=== PATIENT | male | born 1955 | race Caucasian/White ===

== ENCOUNTER → 2018-07-01 10:11 | Outpatient (CLI) | payer BC, SELFPAY | PROVIDERS: Visit Provider Internal Medicine Hematology & Oncology | DX: C25.9 Malignant neoplasm of pancreas, unspecified (principal) | CPT/HCPCS: 78306 ==

== ENCOUNTER → 2018-07-08 12:52 | Outpatient (CLI) | payer BC, SELFPAY | PROVIDERS: Visit Provider Internal Medicine Hematology & Oncology | DX: C25.9 Malignant neoplasm of pancreas, unspecified (principal) | CPT/HCPCS: 70553; 71260; 74177; A9585; Q9967; A4216 ==

== ENCOUNTER 2018-09-03 15:10 | Inpatient (IN) | payer BC, OTHER, SELFPAY ==
[2018-09-03 15:12] VITALS: BP 150/86; PULSE 63; RESP 18; TEMP 36.6; O2SAT 99; BMI 28.8
--- NOTE | 2018-09-03 15:27 | EKG12_ITS ---
Test Reason : Blood Pressure : / mmHG Vent. Rate : 063 BPM Atrial Rate : 063 BPM P-R Int : 148 ms QRS Dur : 084 ms QT Int : 448 ms P-R-T Axes : -08 035 057 degrees QTc Int : 458 ms Normal sinus rhythm Normal ECG Confirmed by CAMMIE GONZALES, GEMA ([id number]), marketing editor ASHLEY FREEMAN ([id number]) on 09/06/2018 12:24:03 PM Referred By: Derrell Ornelas Confirmed By:GEMA BONDS MD
--- NOTE | 2018-09-03 15:37 | CT_ITS ---
STUDY: CT ABDOMEN AND PELVIS WITH CONTRAST REASON FOR EXAM: Male, 63 years old. Hiccups for one week. Pancreatic cancer with stent. Chemotherapy. RADIATION DOSAGE (If Supplied By Facility): CTDIvol = ( 14.55 ) mGy, DLP = ( 920.15 ) mGycm TECHNIQUE: Transaxial images were obtained from the dome of the diaphragm to the symphysis pubis with oral contrast. 100 ml of Isovue 300 contrast was administered. Sagittal and coronal images were reconstructed. # of Images: 410 Individualized dose optimization techniques were used for this CT. COMPARISON: None. FINDINGS: The visualized lung bases are unremarkable. The visualized portions of the heart are within normal limits. Relatively stable appearance of infiltrating mass in the head of the pancreas. This is difficult to measure but on coronal views is probably about 4.8 cm top to bottom, versus about 4.9 cm previously, and axial images approximately 5 cm side to side versus 4.9 cm previously. These measurements are not significantly different. Again seen is encasement of epigastric vascular structures. Again seen is a dilated pancreatic duct. Common bile duct stent is still in satisfactory position. Intrabiliary air is seen in the liver from the stent. Otherwise normal liver, no gross metastatic disease. Nondistended gallbladder, with gallstones again seen. Normal spleen. Normal bilateral adrenal glands. Normal right kidney. Normal left kidney. Normal visualized stomach. Normal small intestine. There is diverticulosis, with thickening of the colon wall, and pericolonic inflammation changes consistent with acute diverticulitis in the descending colon. There is localized perforation with small foci of extraluminal air. See axial images 45-61. The appendix is visualized and appears normal. Normal abdominal aorta. Normal inferior vena cava. Normal retroperitoneum. Normal urinary bladder. There is enlargement of the prostate gland. Bilateral small fat-containing inguinal hernias, and small umbilical hernia. There are diffuse degenerative changes of the visualized lumbar spine. Stable partial compression fracture of T12. CT/Abdomen/Pelvis WITH Contrast IMPRESSION: Acute diverticulitis of the mid descending colon with no evidence for abscess, but with localized perforation. Stable appearance of pancreatic head mass consistent with locally invasive pancreatic cancer. Electronically Signed: Osmin Cannon MD at 17:52 EDT , Service support ,
[2018-09-03] MEDS: Morphine 4 MG/ML Syringe IV (16:03)
[2018-09-03] MEDS: Ondansetron 4 MG/2 ML Vial IV ×2 (16:03→18:46)
[2018-09-03 16:11] LABS: Absolute Lymphocyte Count 0.92 X10^3/ul (0.83-4.51); Absolute Neutrophil Count 6.2 X10^3/uL (2.0-7.7); Hemoglobin 11.6 g/dl (13.0-16.5); Lymphocyte # 0.92 X10^3/ul (4.0); Lymphocyte % 12.6 % (19-41); Mean Corp Hgb Conc 32.2 g/gl (32-36); Mean Platelet Vol. 8.5 fl (6.2-12.0); Monocyte% 2.7 % (0-10); Neutrophil # 6.17 X10^3/uL (2.7-7.7); Neutrophil % 84.4 % (47-70); Platelet Count 280 K/mm3 (150-450); RBC Distribution Width CV 14.1 % (11.6-14.6); RBC Distribution Width SD 44.5 fl (35.1-43.9); Red Blood Count 4.14 M/mm3 (4.6-6.2); White Blood Count 7.3 K/mm3 (4.4-11.0)
[2018-09-03 16:14] LABS: POSITIVE COUNT NO; POSITIVE DIFFERENTIAL NO; POSITIVE MORPHOLOGY NO
[2018-09-03 16:26] VITALS: BP 133/89; PULSE 62; RESP 16; O2SAT 97
[2018-09-03 16:37] LABS: ALB/GLOB Ratio 0.8 RATIO (0.9-2.4); AST(SGOT) 17 U/L (15-37); Alanine Aminotransfer ALT/SGPT 64 U/L (16-61); Albumin, Serum 2.9 g/dL (3.2-5.0); Alkaline Phosphatase 204 U/L (45-117); Anion Gap 9 (5-15); BUN 19 mg/dL (7-18); BUN/Creat Ratio 21.9 RATIO (10-20); Calcium,Total 9.1 mg/dL (8.5-10.1); Chloride 103 mmol/L (98-107); Creatinine, Serum 0.87 mg/dL (0.70-1.30); EST Glomerular Filtration Rate 94 mL/min (>60); Est Glom Filt Rate - Afr Amer 114 mL/min (>60); Estimated Creatinine Clearance 70.88 ml/min; Globulin 3.7 g/dL (2.2-4.2); Glucose 197 mg/dL (74-106); Lipase 75 U/L (73-393); Protein, Total 6.6 g/dL (6.4-8.2); Sodium Level 140 mmol/L (136-145)
[2018-09-03 17:14] VITALS: BP 134/80; PULSE 62; RESP 16; O2SAT 97
--- NOTE | 2018-09-03 17:35 | RAD_ITS ---
STUDY: X-RAY CHEST REASON FOR EXAM: Male, 63 years old. Cough. TECHNIQUE: Frontal and lateral views of the chest. # of Images: 2 COMPARISON: None. FINDINGS: Left PICC line terminates in the mid SVC. The lungs are clear and expanded. There is no demonstrated pleural abnormality. Normal size heart. Normal mediastinum and jessica. Normal visualized pulmonary arteries. There is atherosclerotic tortuosity of the aortic arch and descending thoracic aorta. There are diffuse degenerative changes of the visualized thoracic spine. There are old bilateral rib fractures. There is no demonstrated acute abnormality of the visualized soft tissue structures of the upper abdomen. RAD/Chest PA and Lateral IMPRESSION: No acute chest disease. Electronically Signed: Osmin Cannon MD at 17:54 EDT , Service support ,
[2018-09-03 18:09] VITALS: BP 122/71; PULSE 67; RESP 16; O2SAT 97
[2018-09-03 19:00] VITALS: BP 120/85; PULSE 68; RESP 16; O2SAT 97
--- NOTE | 2018-09-03 19:04 | HP.PCM_ITS ---
Problem List (1) Diverticulitis Status: Acute (2) Pancreas cancer Status: Chronic Qualifiers: Pancreatic malignancy location: unspecified Qualified Code(s): C25.9 - Malignant neoplasm of pancreas, unspecified History of Present Illness Date of Admission: 09/03/18 Chief Complaint: Hiccups and heartburn. The patient is a 63 year old M with a history of hypertension, hyperlipidemia, depression, GERD who presents with 4-day history of worsening hiccups and heartburn. Patient has been having hiccups for about 1 months but since the last 4 days his hiccups has been excessive. Patient is on chemotherapy for pancreatic cancer. He takes chemotherapy through pump which is switched on and off. Today he went in for his chemotherapy pump to be turned off and he mentioned that he is having hiccups and heartburn. He was instructed to come to the ED for further evaluation. Also patient reports of left-sided abdominal pain. His pain severity is 5 out of 10. His pain quality is sharp. His pain is nonradiating. His pain severity increased with cough and with pushing of his abdomen. His Last bowel movement was about 3 days ago. Typically he gets laxative on his chemotherapy days. CT of the abdomen done at the ED showed sigmoid diverticulitis with localized perforation. Past Medical History Past Medical History (Chronic Problems): Chronic Problems (Last Reviewed 09/03/18 @ 20:11 by Ger Sosa MD) Pancreas cancer (Chronic) Medical History: Medical History (Last Reviewed 09/03/18 @ 20:11 by Ger Sosa MD) Gallstones K80.20 INSERTION CVC TUNNELED WITH PORT PUMP 06-15-18 Pancreatic mass K86.9 Peyronie's disease N48.6 Prostate cancer C61 TREATED WITH RADIATION Allergies No Known Allergies Allergy (Verified 09/03/18 15:14) Home Medications: Ambulatory Orders Medication Instructions Recorded Acetaminophen [Pain Relief] 1,000 mg PO Q6H PRN 06/24/18 Citalopram [Celexa] 40 mg PO DAILY 06/24/18 Losartan Potassium [Cozaar] 100 mg PO DAILY 06/24/18 Magnesium Hydroxide 2,400 mg PO DAILY PRN 06/24/18 Ondansetron [Zofran] 8 mg PO Q8H PRN PRN 06/24/18 Lidocaine/Prilocaine 5 gm TP UD 06/29/18 [Lidocaine-Prilocaine Cream] Pantoprazole Sodium 40 mg PO DAILY 30 Days #30 07/02/18 tablet. Oxycodone [Oxyir] 5 mg PO PRN PRN 09/03/18 Surgical History: Surgical History (Last Reviewed 09/03/18 @ 19:57 by Ger Sosa MD) History of biliary duct stent placement Z98.890 EDG WITH INSERTION STENT 06-04-18 History of ear surgery Z98.890 PERFORATED EAR DRUM 1981 History of toe surgery Z98.890 LT GREAT TOE PARTIAL AMPUTION FOR CANCER 03-22-18 Surgical History: - Lives: Spouse/ Significant Other Smoking Status: Never smoker Alcohol: None - *Family History Maternal Family History: Family History (Last Reviewed 09/03/18 @ 19:58 by Ger Sosa MD) Brother Arthritis Father Myocardial infarction Paternal Family History: Family History (Last Reviewed 09/03/18 @ 19:58 by Ger Sosa MD) Brother Arthritis Father Myocardial infarction History Items: - - Paternal family with a history of muscular dystrophy and heart disease. Maternal family with a history of heart disease. Review of Systems Constitutional: Reports: Anorexia. Denies: Chills, Fever HEENT: Denies: Head Aches, Sinus Congestion, Sinus Drainage Cardiovascular: Denies: Chest Pain, Palpitations Respiratory: Reports: Cough. Denies: Shortness of breath at rest, Sputum production Gastrointestinal: Reports: Abdominal Pain, Nausea, Vomiting - Productive for phlegm. Genitourinary: Denies: Dysuria Musculoskeletal: Denies: Joint Pain, Joint Tenderness Skin: Denies: Rash, Wounds Neurological: Denies: Numbness, Tingling, Focal weakness Psychiatric: Denies: Anxiety, Depression, Homicidal Ideations, Suicidal Ideations Hematologic/ Lymphatic: Denies: Easy Bruising, Easy Bleeding VTE Information - Inpt Only VTE Present on Admission: No VTE Mechan Device Prophylaxis: None VTE Pharm Prophylaxis ordered?: Yes Patient Problems: Active and Suspected Problems (Last Reviewed 09/03/18 @ 20:11 by Ger Sosa MD) Diverticulitis (Acute) Chemotherapy induced neutropenia (Acute) Educational circumstance (Acute) - Physical Exam General: Alert, Oriented x3, Cooperative HEENT: Atraumatic, PERRLA, EOMI, Normocephalic Neck: Supple, No JVD, Negative Carotid Bruits Lungs: Clear to auscultation, Normal air movement Cardiovascular: Regular rate, No murmurs Abdomen: Bowel Sounds Present, Soft, Tender - Left lower quadrant Extremities: No edema, Capillary Refill Less than 3 Seconds, - - Portacath in Left arm Skin: No rashes, No breakdown Musculoskeletal: No Tenderness to Palpation of Joints or Extremities Neurological: Cranial nerves II-XII grossly intact Psych/Mental Status: Normal Affect, Appropriate Vital Signs Temp Pulse Resp BP Pulse Ox 97.9 F 68 16 120/85 H 97 09/03/18 15:12 09/03/18 19:00 09/03/18 19:00 09/03/18 19:00 09/03/18 19:00 Oxygen Delivery Method Room Air Weight: 76.204 kg Body Mass Index (BMI) 28.8 Laboratory Tests Past 24 Hrs 09/03/18 09/03/18 15:58 15:58 WBC 7.3 RBC 4.14 L Hgb 11.6 L Hct 36.0 L MCV 87.0 MCH 28.0 MCHC 32.2 RDW 14.1 RDW Differential 44.5 H Plt Count 280 MPV 8.5 Immature Gran % (Auto) 0.300 Neut % (Auto) 84.4 H Lymph % (Auto) 12.6 L Nicholas % (Auto) 2.7 Eos % (Auto) 0.0 Baso % (Auto) 0.0 Absolute Neuts (auto) 6.2 Absolute Lymphs (auto) 0.92 Total Counted Not Reportable Sodium 140 Potassium 4.0 Chloride 103 Carbon Dioxide 28.0 Anion Gap 9 BUN 19 H Creatinine 0.87 Estim Creat Clear Calc 70.88 Est GFR (MDRD) Af Amer 114 Est GFR (MDRD) Non-Af 94 BUN/Creatinine Ratio 21.9 H Glucose 197 H Calcium 9.1 Total Bilirubin 0.70 AST 17 ALT 64 H Alkaline Phosphatase 204 H Troponin I < 0.015 Total Protein 6.6 Albumin 2.9 L Globulin 3.7 Albumin/Globulin Ratio 0.8 L Lipase 75 Assessment/Plan All Active Problems (Last Reviewed 09/03/18 @ 20:11 by Ger Sosa MD) Diverticulitis (Acute) Chemotherapy induced neutropenia (Acute) Chemotherapy induced nausea and vomiting (Acute) Educational circumstance (Acute) The patient is a 63 year old M with a history of hypertension, hyperlipidemia, depression, GERD who presents with 4-day history of worsening hiccups and heartburn and found to with localized perforation. Acute sigmoid diverticulitis Patient received Zosyn at emergency department. We will start patient on metronidazole and Ciprofloxacin Supportive treatment with lactated Ringer's, morphine and antiemetics. His Hiccups could be due to his acute sigmoid diverticulitis which is causing inflammation to his diaphragm. Scheduled Chlorpromazine ordered Because patient has been started on Ciprofloxacin and Chlorpromazine; and is also on Celexa and all these medications can prolong QT intervals will repeat EKG next day. Trend CBC and BMP. We will keep patient n.p.o. for now. ED doctor discussed case with Dr. Kunz. Surgery consult. Constipation Senokot ordered Reportedly patient takes laxative with each chemotherapy. Home magnesium hydroxide as needed continued. Depression Celexa continued. GERD Pantoprazole continued. Pancreatic Cancer Oncology consulted. Home Oxycodone prn continued. As needed morphine ordered in the setting of acute sigmoid diverticulitis. Hypertension Blood pressure fairly controlled on admission. Trend blood pressures. Elevated liver enzymes Chronic Will not follow at this time. DVT Prophylaxis Subcutaneous Lovenox Code Visit Inpatient E&M: 11346 Init Hosp L3
--- NOTE | 2018-09-03 19:19 | ED.DCSUM_ITS ---
- ER Visit Summary Date of Service: 09/03/18 Chief Complaint: Hiccups and heartburn History of Present Illness: The patient is a 63 M who presents with hiccups. He states that he has been having hiccuping and that this caused burning central chest pain over the past 3 days. He had an appointment today to have his chemotherapy pump removed. He had mentioned to staff his symptoms and he was advised to come to the emergency department to have his heart checked. He also complains of intermittent left-sided abdominal pain. It is difficult to ascertain how long he is having his symptoms. He initially was stating that it was just today but does mention that he mentioned it to his pain management do ctor 2 weeks ago. then states it may have been going on for months. However it was certainly worse today. He denies any vomiting or diarrhea. No fevers. No chest pain or shortness of breath. Physical Examination: Afebrile vitals are unremarkable Moist mucous membranes Heart regular rate and rhythm Lungs are clear Abdomen soft Patient is very tender in the left lower quadrant but he does not have guarding or rebound Alert Test Results: EKG shows sinus rhythm. Labs notable for alkaline phosphatase of 204 and ALT of 64. Troponin is negative. Chest x-ray shows no acute disease. CT of the abdomen and pelvis does show acute sigmoid diverticulitis with localized perforation without abscess. Emergency Department Course and Treatment: Patient was symptomatically treated here with IV fluids morphine and Zofran. He was given Zosyn for acute diverticulitis. I did discuss the patient with general surgery given localized perforation, Dr. Colon who can see the patient in consultation and patient was admitted under the hospitalist service. Treatment Plan: [] Disposition: Admit Impression: Acute diverticulitis with localized perforation This note was generated with [employer] dictation software. It may contain incorrect words, spelling, and punctuation that were not noted in review of the chart prior to signing ED Disposition - Plan for ED Patient: Chief Complaint: General Illness Referrals: [facility] Doctor,Out of [Primary Care Provider] -
[2018-09-03 19:56] VITALS: BMI 28.1
[2018-09-03 20:13] VITALS: BMI 28.2
[2018-09-03 20:45] VITALS: BP 128/89; PULSE 76; RESP 18; TEMP 36.6; O2SAT 99
[2018-09-03] MEDS: Lactated Ringers 1,000 ML 75 ML IV (22:29)
[2018-09-03] MEDS: 0.9% NaCl Peripheral Flush Adult/Peds IV (22:30)
[2018-09-04] VITALS (7 sets, daily range): BP systolic 90–106; BP diastolic 58–71; PULSE 71–81; RESP 16–18; TEMP 36.6–37.2; O2SAT 63–95
[2018-09-04] MEDS: Ciprofloxacin 400 MG/200 ML BAG 200 MG IV ×3 (01:15→22:34)
[2018-09-04] MEDS: 0.9% NaCl Peripheral Flush Adult/Peds IV (06:23)
[2018-09-04 06:34] LABS: Absolute Neutrophil Count 9.4 X10^3/uL (2.0-7.7); Basophil# 0.01 X10^3/uL; Basophil% 0.1 % (0-1); Differential Indicated SCAN CRITERIA MET; Eosinophil# 0.02 X10^3/uL; Eosinophils% 0.2 % (0-5); Hematocrit 32.6 % (40-54); Hemoglobin 10.5 g/dl (13.0-16.5); Lymphocyte % 6.8 % (19-41); Mean Corp Hgb Conc 32.2 g/gl (32-36); Mean Corpuscular Hgb 28.5 pg (27.0-32.0); Mean Corpuscular Volume 88.6 fL (80-94); Mean Platelet Vol. 9.2 fl (6.2-12.0); Monocyte# 0.11 X10^3/uL; Monocyte% 1.1 % (0-10); Neutrophil # 9.41 X10^3/uL (2.7-7.7); Neutrophil % 90.9 % (47-70); POSITIVE COUNT NO; POSITIVE DIFFERENTIAL NO; POSITIVE MORPHOLOGY YES; Platelet Count 271 K/mm3 (150-450); RBC Distribution Width CV 14.1 % (11.6-14.6); RBC Distribution Width SD 44.2 fl (35.1-43.9); Red Blood Count 3.68 M/mm3 (4.6-6.2); White Blood Count 10.3 K/mm3 (4.4-11.0)
--- NOTE | 2018-09-04 06:52 | NURSING ---
Attempted to page Dr. Lancaster. Director Of Planning stated that Dr. Noble was special education paraeducator and she would send the page out. No return call yet. Primary RN notified & Charge nurse notified.
[2018-09-04 07:04] LABS: Anion Gap 9 (5-15); BUN 18 mg/dL (7-18); BUN/Creat Ratio 18.2 RATIO (10-20); Calcium,Total 8.4 mg/dL (8.5-10.1); Chloride 103 mmol/L (98-107); Creatinine, Serum 0.99 mg/dL (0.70-1.30); EST Glomerular Filtration Rate 81 mL/min (>60); Est Glom Filt Rate - Afr Amer 98 mL/min (>60); Estimated Creatinine Clearance 62.29 ml/min; Glucose 161 mg/dL (74-106); Potassium 4.3 mmol/L (3.5-5.1); Sodium Level 139 mmol/L (136-145)
[2018-09-04 07:09] LABS: Differential Comment SCANNED
--- NOTE | 2018-09-04 07:56 | CON.PCM_ITS ---
Reason for Consult Date of Consultation: 09/04/18 History of Present Illness: The patient is a 63 year old M with a known history of pancreatic cancer currently undergoing neoadjuvant chemotherapy with hopes of downstaging his pancreatic head mass to resectable status with diverticulitis. The patient has noted for the past month left lateral abdominal discomfort which she assumed was related to his primary diagnosis. His pain had increased over the last few days. He presented to [facility] emergency department and underwent a CT scan of the abdomen and pelvis which demonstrated diverticulitis in the descending colon segment with extracolonic contained air and no significant abscess noted. the patient's white blood cell count on admission was 7.3. He notes that he is become neutropenic during his treatments and yesterday received Neulasta. The patient did undergo colonoscopy last year at [facility]. He was told he had a normal colonoscopy. the patient still notes some mild left-sided abdominal discomfort. He denies true fever or chills. He is noted irregular bowel activity during his treatment including occasional constipation and diarrhea. He started yesterday with a formed stool that ended more liquid. Past Medical History Past Medical History (Chronic Problems): Chronic Problems (Last Reviewed 09/03/18 @ 20:11 by Ger Sosa MD) Pancreas cancer (Chronic) Medical History: Medical History (Last Reviewed 09/03/18 @ 20:11 by Ger Sosa MD) Gallstones K80.20 INSERTION CVC TUNNELED WITH PORT PUMP 06-15-18 Pancreatic mass K86.9 Peyronie's disease N48.6 Prostate cancer C61 TREATED WITH RADIATION Allergies No Known Allergies Allergy (Verified 09/03/18 15:14) Home Medications: Ambulatory Orders Medication Instructions Recorded Acetaminophen [Pain Relief] 1,000 mg PO Q6H PRN 06/24/18 Citalopram [Celexa] 40 mg PO DAILY 06/24/18 Losartan Potassium [Cozaar] 100 mg PO DAILY 06/24/18 Magnesium Hydroxide 2,400 mg PO DAILY PRN 06/24/18 Ondansetron [Zofran] 8 mg PO Q8H PRN PRN 06/24/18 Lidocaine/Prilocaine 5 gm TP UD 06/29/18 [Lidocaine-Prilocaine Cream] Pantoprazole Sodium 40 mg PO DAILY 30 Days #30 07/02/18 tablet.dr Oxycodone [Oxyir] 5 mg PO PRN PRN 09/03/18 Surgical History: Surgical History (Last Reviewed 09/03/18 @ 19:57 by Ger Sosa MD) History of biliary duct stent placement Z98.890 EDG WITH INSERTION STENT 06-04-18 History of ear surgery Z98.890 PERFORATED EAR DRUM 1981 History of toe surgery Z98.890 LT GREAT TOE PARTIAL AMPUTION FOR CANCER 03-22-18 Surgical History: - Lives: Spouse/ Significant Other Smoking Status: Never smoker Tobacco Use: Secondhand Alcohol: None - *Family History Maternal Family History: Family History (Last Reviewed 09/03/18 @ 19:58 by Ger Sosa MD) Brother Arthritis Father Myocardial infarction Paternal Family History: Family History (Last Reviewed 09/03/18 @ 19:58 by Ger Sosa MD) Brother Arthritis Father Myocardial infarction History Items: - - Paternal family with a history of muscular dystrophy and heart disease. Maternal family with a history of heart disease. Review of Systems Constitutional: Denies: Chills, Fever, Weight Change HEENT: Denies: Head Aches, Sinus Congestion, Sinus Drainage Cardiovascular: Denies: Chest Pain, Palpitations Respiratory: Denies: Cough, Shortness of breath at rest, Sputum production Gastrointestinal: Reports: Abdominal Pain. Denies: Nausea, Vomiting Genitourinary: Denies: Dysuria Musculoskeletal: Denies: Joint Pain, Joint Tenderness Skin: Denies: Rash, Wounds Neurological: Denies: Numbness, Tingling, Focal weakness Psychiatric: Denies: Anxiety, Depression, Homicidal Ideations, Suicidal Ideations Hematologic/ Lymphatic: Denies: Easy Bruising, Easy Bleeding Patient Problems: Active and Suspected Problems (Last Reviewed 09/03/18 @ 20:11 by Ger Sosa MD) Diverticulitis (Acute) Chemotherapy induced neutropenia (Acute) Educational circumstance (Acute) - Physical Exam General: Alert, Oriented x3, Cooperative HEENT: Atraumatic, PERRLA, EOMI, Normocephalic Neck: Supple, No JVD Lungs: Clear to auscultation, Normal air movement Cardiovascular: Regular rate, No murmurs Abdomen: Bowel Sounds Present, Soft, - - mildly tender in the left lateral abdominal region without peritoneal signs Extremities: No edema, Capillary Refill Less than 3 Seconds Skin: No rashes, No breakdown Musculoskeletal: No Tenderness to Palpation of Joints or Extremities Neurological: Cranial nerves II-XII grossly intact Psych/Mental Status: Normal Affect, Appropriate Vital Signs Temp Pulse Resp BP Pulse Ox 98.9 F 71 16 101/67 94 09/04/18 03:56 09/04/18 03:56 09/04/18 03:56 09/04/18 03:56 09/04/18 03:56 Oxygen Delivery Method Room Air Weight: 74.5 kg Body Mass Index (BMI) 28.1 Intake and Output for Last 24 Hours 09/02/18 09/03/18 09/04/18 23:59 23:59 23:59 Intake Total 1026 / 1026 Output Total 650 / 650 Balance 376 / 376 Laboratory Tests Past 24 Hrs 09/03/18 09/03/18 09/04/18 15:58 15:58 05:37 WBC 7.3 10.3 RBC 4.14 L 3.68 L Hgb 11.6 L 10.5 L Hct 36.0 L 32.6 L MCV 87.0 88.6 MCH 28.0 28.5 MCHC 32.2 32.2 RDW 14.1 14.1 RDW Differential 44.5 H 44.2 H Plt Count 280 271 MPV 8.5 9.2 Immature Gran % (Auto) 0.300 0.900 Neut % (Auto) 84.4 H 90.9 H Lymph % (Auto) 12.6 L 6.8 L Bureau % (Auto) 2.7 1.1 Eos % (Auto) 0.0 0.2 Baso % (Auto) 0.0 0.1 Absolute Neuts (auto) 6.2 9.4 H Absolute Lymphs (auto) 0.92 0.70 L Total Counted Not Reportable Not Reportable Differential Comment SCANNED Sodium 140 Potassium 4.0 Chloride 103 Carbon Dioxide 28.0 Anion Gap 9 BUN 19 H Creatinine 0.87 Estim Creat Clear Calc 70.88 Est GFR (MDRD) Af Amer 114 Est GFR (MDRD) Non-Af 94 BUN/Creatinine Ratio 21.9 H Glucose 197 H Calcium 9.1 Total Bilirubin 0.70 AST 17 ALT 64 H Alkaline Phosphatase 204 H Troponin I < 0.015 Total Protein 6.6 Albumin 2.9 L Globulin 3.7 Albumin/Globulin Ratio 0.8 L Lipase 75 09/04/18 05:37 WBC RBC Hgb Hct MCV MCH MCHC RDW RDW Differential Plt Count MPV Immature Gran % (Auto) Neut % (Auto) Lymph % (Auto) Bureau % (Auto) Eos % (Auto) Baso % (Auto) Absolute Neuts (auto) Absolute Lymphs (auto) Total Counted Differential Comment Sodium 139 Potassium 4.3 Chloride 103 Carbon Dioxide 27.0 Anion Gap 9 BUN 18 Creatinine 0.99 Estim Creat Clear Calc 62.29 Est GFR (MDRD) Af Amer 98 Est GFR (MDRD) Non-Af 81 BUN/Creatinine Ratio 18.2 Glucose 161 H Calcium 8.4 L Total Bilirubin AST ALT Alkaline Phosphatase Troponin I Total Protein Albumin Globulin Albumin/Globulin Ratio Lipase Assessment/Plan All Active Problems (Last Reviewed 09/03/18 @ 20:11 by Ger Sosa MD) Diverticulitis (Acute) Chemotherapy induced neutropenia (Acute) Chemotherapy induced nausea and vomiting (Acute) Educational circumstance (Acute) diverticulitis-patient is currently on IV antibiotics Flagyl and Ciprowhich I feel is appropriate. I am comfortable with the patient receiving clear liquids currently and and willing to advance this to low residue diet if the patient's symptoms improve area would plan to follow the patient clinically as following his white blood cell count in the midst of chemotherapy and Neulasta treatment will not clearly differentiate change in his overall state of his diverticulitis.
[2018-09-04] MEDS: Enoxaparin 40 MG/0.4 ML Syringe SC (09:47)
[2018-09-04] MEDS: Senna/Docusate Sodium 1 Tablet 2 TABLET PO (09:47)
[2018-09-04] MEDS: Citalopram 40 MG TABLET PO (09:47)
[2018-09-04] MEDS: Pantoprazole Sodium 40 MG Tablet PO (09:48)
--- NOTE | 2018-09-04 12:00 | EKG12_ITS ---
Test Reason : Blood Pressure : / mmHG Vent. Rate : 073 BPM Atrial Rate : 073 BPM P-R Int : 150 ms QRS Dur : 074 ms QT Int : 416 ms P-R-T Axes : 011 012 044 degrees QTc Int : 458 ms Normal sinus rhythm Nonspecific T wave abnormality Abnormal ECG When compared with ECG of 03-SEP-2018 15:38, MANUAL COMPARISON REQUIRED, DATA IS UNCONFIRMED Confirmed by NETO YOUNG ([id number]), newspaper editor managing CLAUDY MAY ([id number]) on 09/14/2018 12:53:21 PM Referred By: Derrell Ornelas Confirmed By:NETO YOUNG
--- NOTE | 2018-09-04 12:30 | CM.UR ---
Met face to face with patient. He denies any anticipated needs. Denies needs at home. States he does not have advance directives. Declines any additional information at this time. States he wants to talk to his about them. Instructed that we have the forms, can answer any questions and help facilitate completion if interested. Verb understanding. Encouraged him someone know if he would like assistance during IP stay. Verb understanding. Sonido Carvajal RN, CCM.
--- NOTE | 2018-09-04 12:35 | PN_ITS ---
Patient Problems: Active and Suspected Problems (Last Reviewed 09/03/18 @ 20:11 by Ger Sosa MD) Diverticulitis (Acute) Chemotherapy induced neutropenia (Acute) Educational circumstance (Acute) Subjective: Patient was seen and examined today, he complains of belching frequently, I told him I do not know what is causing the problem, he is currently on Protonix. General surgery does not feel the patient needs surgery at this time and recommended continuing IV antibiotics. - Physical Exam General: Alert, Oriented x3, Cooperative, No apparent distress, Well developed, Well nourished HEENT: Atraumatic, PERRLA, EOMI, Normocephalic Oral: Moist Mucosa Neck: Supple, No Nuchal Rigidity, Trachea Midline, Thyroid Normal Size and Texture Lungs: Clear to auscultation, Normal air movement, No rhonchi, No wheeze, No rales Cardiovascular: Regular rate, Regular Rhythm, Normal S1, Normal S2, No murmurs, No Ectopic Activity, PMI Normal, No rub noted, No Gallop Abdomen: Bowel Sounds Present, Soft, Tender - There is tenderness noted over the left lower quadrant to palpation Extremities: No edema, Capillary Refill Less than 3 Seconds Skin: No rashes, No breakdown Neurological: Cranial nerves II-XII grossly intact, Neuro grossly intact, Sensory exam intact to light touch and pain, Coordination normal Psych/Mental Status: Normal Affect, Appropriate, Alert and oriented to time, place, person, mood and affect Vital Signs Temp Pulse Resp BP Pulse Ox 98.5 F 78 18 96/62 95 09/04/18 08:56 09/04/18 12:13 09/04/18 12:13 09/04/18 12:13 09/04/18 08:56 Oxygen Delivery Method Room Air Weight: 74.5 kg Body Mass Index (BMI) 28.1 Intake and Output for Last 24 Hours 09/02/18 09/03/18 09/04/18 23:59 23:59 23:59 Intake Total 1676 / 1676 Output Total 650 / 650 Balance 1026 / 1026 Laboratory Tests Past 24 Hrs 09/03/18 09/03/18 09/04/18 15:58 15:58 05:37 WBC 7.3 10.3 RBC 4.14 L 3.68 L Hgb 11.6 L 10.5 L Hct 36.0 L 32.6 L MCV 87.0 88.6 MCH 28.0 28.5 MCHC 32.2 32.2 RDW 14.1 14.1 RDW Differential 44.5 H 44.2 H Plt Count 280 271 MPV 8.5 9.2 Immature Gran % (Auto) 0.300 0.900 Neut % (Auto) 84.4 H 90.9 H Lymph % (Auto) 12.6 L 6.8 L [place] % (Auto) 2.7 1.1 Eos % (Auto) 0.0 0.2 Baso % (Auto) 0.0 0.1 Absolute Neuts (auto) 6.2 9.4 H Absolute Lymphs (auto) 0.92 0.70 L Total Counted Not Reportable Not Reportable Differential Comment SCANNED Sodium 140 Potassium 4.0 Chloride 103 Carbon Dioxide 28.0 Anion Gap 9 BUN 19 H Creatinine 0.87 Estim Creat Clear Calc 70.88 Est GFR (MDRD) Af Amer 114 Est GFR (MDRD) Non-Af 94 BUN/Creatinine Ratio 21.9 H Glucose 197 H Calcium 9.1 Total Bilirubin 0.70 AST 17 ALT 64 H Alkaline Phosphatase 204 H Troponin I < 0.015 Total Protein 6.6 Albumin 2.9 L Globulin 3.7 Albumin/Globulin Ratio 0.8 L Lipase 75 09/04/18 05:37 WBC RBC Hgb Hct MCV MCH MCHC RDW RDW Differential Plt Count MPV Immature Gran % (Auto) Neut % (Auto) Lymph % (Auto) [place] % (Auto) Eos % (Auto) Baso % (Auto) Absolute Neuts (auto) Absolute Lymphs (auto) Total Counted Differential Comment Sodium 139 Potassium 4.3 Chloride 103 Carbon Dioxide 27.0 Anion Gap 9 BUN 18 Creatinine 0.99 Estim Creat Clear Calc 62.29 Est GFR (MDRD) Af Amer 98 Est GFR (MDRD) Non-Af 81 BUN/Creatinine Ratio 18.2 Glucose 161 H Calcium 8.4 L Total Bilirubin AST ALT Alkaline Phosphatase Troponin I Total Protein Albumin Globulin Albumin/Globulin Ratio Lipase Medical Necessity - Tobacco Use Smoking Status: Never smoker Tobacco Use: Secondhand Assessment/Plan All Active Problems (Last Reviewed 09/03/18 @ 20:11 by Ger Sosa MD) Diverticulitis (Acute) Chemotherapy induced neutropenia (Acute) Chemotherapy induced nausea and vomiting (Acute) Educational circumstance (Acute) #1 acute sigmoid diverticulitis-continue IV Cipro and metronidazole #2 pancreatic cancer #3 hypertension #4 Depression Code Visit Inpatient E&M: 80907 Subs Hosp L2
--- NOTE | 2018-09-04 15:38 | ONC.CONS.INP ---
Subjective Date of Service:: 09/04/18 Chief Complaint: Pancreatic cancer History of Present Illness: Patient is a 63-year-old gentleman who was in his usual state of health until February 2018 when he experienced increasing abdominal pain epigastrium radiating to the back, anorexia nausea and vomiting until he was seen at [facility] in May 2018 then transferred to [facility] was what was believed to be stone pancreatitis. He underwent ERCP where an obstructive lesion was found and the wire could not be passed beyond, then he underwent MRCP that revealed a pancreatic mass. He then underwent an ERCP with sphincterotomy and stent placement with endoscopic ultrasound FNA biopsy of the pancreatic mass confirming an adenocarcinoma. His CA 19-9 was 6081.3 (outside hospital), over 2000 at [facility] lab. Staging CT scan of the abdomen demonstrated the pancreatic mass infiltrating around the SMA, SMV, celiac and proximal common hepatic artery and infiltrating down to the level of the raymond of the diaphragm. His pretreatment CT scans of the chest abdomen and pelvis and bone scan did not suggest metastatic disease. Initially a palliative approach with systemic chemotherapy consisting of gemcitabine and Abraxane was advised by [facility]. Patient sought second opinion per Dr. Witt at [facility] who advised an attempt at downstaging the cancer with modified FOLFIRINOX (Oxaliplatin 60 mg/m?, Irinotecan 120 mg/m? and 5-FU 1900 mg/m?) followed by restaging and reassessment for resectability. The patient favored the more aggressive approach with intent to cure. Began neoadjuvant modified FOLFIRINOX (Oxaliplatin 60 mg/m?, Irinotecan 120 mg/m? and 5-FU 1900 mg/m?) July 21, 2018 at [facility]. Received cycle 4 on 09/01/18 and when presented on 09/03/18 for CADD pump removal, patient c/o left sided abd pain and reflux, thus was encouraged to be evaluated acutely in the ED. CT abd at that time revealed sigmoid diverticulitis with small perforation. Upon entering his room, he is lying comfortably in bed. Reports LLQ pain only occurs if abd is deeply palpated and hiccups/heartburn are also improved. Reports 1 episode of diarrhea earlier today, resolved without intervention. Past Medical History: Chronic Problems (Last Reviewed 09/03/18 @ 20:11 by Ger Sosa MD) Pancreas cancer (Chronic) Past Medical/Surgical History: Past Medical History - Most Recent Inpatient Visit Past Medical History Start: 09/03/18 19:56 Text: Status: Complete Freq: ONCE Protocol: Document 09/03/18 20:13 MM (Rec: 09/03/18 20:19 MM [id number]) BMI Required to complete PMH What is Patient's BMI 28.2 Past Medical History Unable History Recalled No Query Text:Pt Unable/Family Not Present Neurologic Medical History Hx Stroke/TIA No Hx Dementia/Alzheimer's No Hx Parkinson's Disease No Hx Seizures No Hx Multiple Sclerosis No Hx Migraines Yes Cardiac Medical History VTE Present on Admission No Hx of Deep Vein Thrombosis/VTE/PE No Hx Hypertension Yes Hx Chest Pain/Angina No Hx Heart Attack No Hx Cardiac Surgery/Stents/Etc. No Hx Heart Failure No Hx Pacemaker/AICD No Hx Irregular Heartbeat and/or Afib No Hx Anticoagulant Therapy No Query Text:(Coumadin, Aspirin, Plavix, Xarelto, etc.) Hx Pain in Legs when Walking/Leg Cramps No Respiratory Medical History Hx COPD No Hx Emphysema No Hx Smoking No Smoking Status Never smoker Tobacco Use Secondhand Hx Smoking Exposure Yes: as a child Hx Tobacco Use in last 12 months No Hx of Pipe Smoking No Hx of Cigar Smoking No Hx Sleep Apnea No CPAP No BIPAP No Do you snore loudly (louder than talking Yes or can be heard through closed doors)? Do you often feel tired/ fatigued/ No sleepy during daytime? Has anyone observed you stop breathing Yes during sleep? STOP Results Positive GI Medical History Hx Ulcer No Hx Hepatitis No Hx Cirrhosis No Hx GI Bleed No Hx Unplanned Weight Loss Yes Comments Bile duct stent Genitourinary Medical History Indwelling Catheter in Place on Arrival/ No Admission Hx Renal Disease No Hx Dialysis No Musculoskeletal History Hx Arthritis No Hx Rheumatoid Arthritis No Endocrine Medical History Hx Diabetes No Hx Thyroid Disease No Hematologic Medical History Hx of Blood Transfusion No Hx of Transfusion in last 3 Months No Ever experience any problems with No transfusion(s)? Hx of Preganancy in last 3 Months N/A Nurse Filling Out Transfusion & MMELUCH Questions: Date: 09/03/18 Time: 20:16 Psycho/Social Medical History Hx Depression Yes Hx Anxiety Yes Hx Behavior Disorder No Hx Alcohol Use No Hx Substance Use No Other Medical History Hx Blood Disorders No Hx Anemia No Hx Cancer Yes: pancreatic, prostate, left foot great toe removed d/ t cancer Hx Drug Resistant Organism No Wound/Pressure Injury Present on Arrival No /Admission Query Text:If yes, chart assessment in Shift/Clinical Findings Central Line/PICC/VAD Present on Arrival Yes /Admission Antibiotics within last 7 days? No Comments port in left arm-placed at [facility] Methicillin Resistant Staphylococcus aureus Screening Active MRSA No Risk for Readmission Number of Risk Factors 4 At Risk for Readmission Patient is At Risk For Readmission Patient is eligible for Call Back Y Past Medical History (Last Reviewed 09/03/18 @ 20:11 by Ger Sosa MD) Gallstones (Acute) INSERTION CVC TUNNELED WITH PORT PUMP (Acute) Pancreatic mass (Acute) Peyronie's disease (Acute) Prostate cancer (Acute) Past Surgical History (Last Reviewed 09/03/18 @ 19:57 by Ger Sosa MD) History of biliary duct stent placement (Acute) History of ear surgery (Acute) History of toe surgery (Acute) Maternal Family History: Family History (Last Reviewed 09/03/18 @ 19:58 by Ger Sosa MD) Brother Arthritis Father Myocardial infarction Paternal Family History: Family History (Last Reviewed 09/03/18 @ 19:58 by Ger Sosa MD) Brother Arthritis Father Myocardial infarction Family History: - - Paternal family with a history of muscular dystrophy and heart disease. Maternal family with a history of heart disease. - Social History Lives: Spouse/ Significant Other Smoking Status: Never smoker Tobacco Use: Secondhand Alcohol: None Allergies/Adverse Reactions: Allergy/AdvReac Type Severity Reaction Status Date / Time No Known Allergies Allergy Verified 09/03/18 15:14 Review of Systems Constitutional:: Reports: Fatigue. Denies: Fever, Sweats, Weight loss, Appetite change, Chills Cardiovascular:: Denies: Chest pain, Palpitations, Dyspnea on exertion, Orthopnea, PND, Shortness of breath Respiratory: Denies: Cough, Hemoptysis, Shortness of Breath, Wheezing Gastrointestinal:: Reports: Abdominal pain, Diarrhea. Denies: Nausea, Vomiting, Constipation, Melena, Hematochezia Genitourinary: Denies: Dysuria, Hematuria, 15, Flank pain Musculoskeletal:: Denies: Back pain, Myalgia, Arthralgia Skin: Denies: Rash, Skin Changes, Wounds Neurological:: Denies: Headache, Dizziness, Numbness, Tingling, Visual changes, Tinnitus, Hearing loss Psychiatric: Denies: Anxiety, Depression, Homicidal Ideations, Suicidal Ideations Vital Signs Height 5 ft 4 in Weight: 164 lb 3.91 oz Weight in Pounds 164.2 lbs Pulse Ox 95 Temperature 98.6 F Pulse Rate 75 Respiratory Rate 18 Blood Pressure [BP] 96/62 Blood Pressure 95/64 Blood Pressure Position [BP] Semi-Fowlers Blood Pressure Position Semi-Fowlers - Physical Exam General: Alert, Oriented x3, No apparent distress HEENT: Atraumatic, Normocephalic, - - wears glasses Oropharynx:: Negative for: Dry mucosa, Ulcerated lesions Neck:: Supple, Trachea midline. Negative for: JVD, bilateral Cardiac:: Regular rate, Regular rhythm, Normal S1, Normal S2. Negative for: Murmur Lungs: Clear to auscultation, Excusion symmetrical. Negative for: Rhonchi, Wheezes Abdomen:: Bowel sounds x 4, Soft, Non-distended, Tender - LLQ. Negative for: Hepatosplenomegaly Extremities:: Negative for: Cyanosis, Edema, Calf tenderness Neurological: Neuro grossly intact Skin:: Negative for: Lesions, Rash, Petechiae, Ecchymosis Psychiatric:: Appropriate affect - shares he is dissappointed about admission as a set back and fears his next chemotherapy will be delayed as a result of it, Euthymic Lymphatics:: Negative for: Cervical lymphadenopathy, Supraclavicular lymphadenopathy, Axillary lymphadenopathy Laboratory Data: Laboratory Tests 09/04/18 09/04/18 09/03/18 Range/Units 05:37 05:37 15:58 WBC 10.3 (4.4-11.0) K/mm3 RBC 3.68 L (4.6-6.2) M/mm3 Hgb 10.5 L (13.0-16.5) g/dl Hct 32.6 L (40-54) % MCV 88.6 (80-94) fL MCH 28.5 (27.0-32.0) pg MCHC 32.2 (32-36) g/gl RDW 14.1 (11.6-14.6) % RDW Differential 44.2 H (35.1-43.9) fl Plt Count 271 (150-450) K/mm3 MPV 9.2 (6.2-12.0) fl Immature Gran % (Auto) 0.900 (0.0-0.9) % Neut % (Auto) 90.9 H (47-70) % Lymph % (Auto) 6.8 L (19-41) % [place] % (Auto) 1.1 (0-10) % Eos % (Auto) 0.2 (0-5) % Baso % (Auto) 0.1 (0-1) % Absolute Neuts (auto) 9.4 H (2.0-7.7) X10^3/uL Absolute Lymphs (auto) 0.70 L (0.83-4.51) X10^3/ul Total Counted Not Reportable Differential Comment SCANNED Sodium 139 140 (136-145) mmol/L Potassium 4.3 4.0 (3.5-5.1) mmol/L Chloride 103 103 (98-107) mmol/L Carbon Dioxide 27.0 28.0 (21.0-32.0) mmol/L Anion Gap 9 9 (5-15) BUN 18 19 H (7-18) mg/dL Creatinine 0.99 0.87 (0.70-1.30) mg/dL Estim Creat Clear Calc 62.29 70.88 ml/min Est GFR (MDRD) Af Amer 98 114 (>60) mL/min Est GFR (MDRD) Non-Af 81 94 (>60) mL/min BUN/Creatinine Ratio 18.2 21.9 H (10-20) RATIO Glucose 161 H 197 H (74-106) mg/dL Calcium 8.4 L 9.1 (8.5-10.1) mg/dL Total Bilirubin 0.70 (0.20-1.00) mg/dL AST 17 (15-37) U/L ALT 64 H (16-61) U/L Alkaline Phosphatase 204 H (45-117) U/L Troponin I < 0.015 (<0.045) ng/mL Total Protein 6.6 (6.4-8.2) g/dL Albumin 2.9 L (3.2-5.0) g/dL Globulin 3.7 (2.2-4.2) g/dL Albumin/Globulin Ratio 0.8 L (0.9-2.4) RATIO Lipase 75 (73-393) U/L 09/03/18 Range/Units 15:58 WBC 7.3 (4.4-11.0) K/mm3 RBC 4.14 L (4.6-6.2) M/mm3 Hgb 11.6 L (13.0-16.5) g/dl Hct 36.0 L (40-54) % MCV 87.0 (80-94) fL MCH 28.0 (27.0-32.0) pg MCHC 32.2 (32-36) g/gl RDW 14.1 (11.6-14.6) % RDW Differential 44.5 H (35.1-43.9) fl Plt Count 280 (150-450) K/mm3 MPV 8.5 (6.2-12.0) fl Immature Gran % (Auto) 0.300 (0.0-0.9) % Neut % (Auto) 84.4 H (47-70) % Lymph % (Auto) 12.6 L (19-41) % [place] % (Auto) 2.7 (0-10) % Eos % (Auto) 0.0 (0-5) % Baso % (Auto) 0.0 (0-1) % Absolute Neuts (auto) 6.2 (2.0-7.7) X10^3/uL Absolute Lymphs (auto) 0.92 (0.83-4.51) X10^3/ul Total Counted Not Reportable Differential Comment Sodium (136-145) mmol/L Potassium (3.5-5.1) mmol/L Chloride (98-107) mmol/L Carbon Dioxide (21.0-32.0) mmol/L Anion Gap (5-15) BUN (7-18) mg/dL Creatinine (0.70-1.30) mg/dL Estim Creat Clear Calc ml/min Est GFR (MDRD) Af Amer (>60) mL/min Est GFR (MDRD) Non-Af (>60) mL/min BUN/Creatinine Ratio (10-20) RATIO Glucose (74-106) mg/dL Calcium (8.5-10.1) mg/dL Total Bilirubin (0.20-1.00) mg/dL AST (15-37) U/L ALT (16-61) U/L Alkaline Phosphatase (45-117) U/L Troponin I (<0.045) ng/mL Total Protein (6.4-8.2) g/dL Albumin (3.2-5.0) g/dL Globulin (2.2-4.2) g/dL Albumin/Globulin Ratio (0.9-2.4) RATIO Lipase (73-393) U/L Diagnostic Data: Diagnostic Data Abdomen/Pelvis CT 09/03/18 15:37 IMPRESSION: Acute diverticulitis of the mid descending colon with no evidence for abscess, but with localized perforation. Stable appearance of pancreatic head mass consistent with locally invasive pancreatic cancer. Electronically Signed: Osmin Cannon MD at 17:52 EDT , Service support , Chest X-Ray 09/03/18 17:35 IMPRESSION: No acute chest disease. Electronically Signed: Osmin Cannon MD at 17:54 EDT , Service support , Assessment and Plan 63-year-old gentleman with at least clinical stage III pancreatic cancer (T4, Nx, Mx). Imaging at the time of initial staging did not suggest metastatic disease. Receiving neoadjuvant chemotherapy. Presented to ED 09/03/18 with c/o LLQ, sigmoid diverticulitis evident and subsequently admitted for management. 1. Stage III pancreatic cancer- Presently receiving neoadjuvant modified (to avoid excessive toxicities) FOLFIRINOX (Oxaliplatin 60 mg/m?, Irinotecan 120 mg/m? and 5-FU 1900 mg/m?). Started July 21, 2018. Main toxicities experienced are diarrhea and neutropenia (now receiving Neulasta following even-numbered cycles of chemotherapy). Cycle 4 administered on 09/01/18. CT abd/pelvis obtained 09/03/18 reviewed, report indicates stable appearance of pancreatic head mass. CBC reviewed and within acceptable parameters. He is otherwise not endorsing any signs or symptoms of toxicity associated with FOLFIRNOX at this time. CT imaging and follow-up with surgery at [facility] is tentatively planned for mid September. 2. Acute sigmoid diverticulitis- with small perforation. Managed by primary team. 3. Hiccups/Heartburn- Hiccups may be medication induced associated with dexamethasone, oxaliplatin or fluorouracil. Patient reports symptom is now improved. Reflux likely attributable to steroid use, continue PPI. Emotional support provided. Patient to follow-up with Dr. Archer at [facility] upon discharge. Aydee Noble, MSN, LOGISTICS VICE PRESIDENT, AOCNP Medications: Prescriptions This Visit Medication Instructions Recorded Oxycodone [Oxyir] 5 mg PO PRN PRN 09/03/18 Medications Added to Medication List This Visit Category Date Time Status Citalopram [Celexa] Med 09/04/18 10:00 Active 40 mg PO DAILY Enoxaparin [Lovenox] Med 09/04/18 10:00 Active 40 mg SC DAILY@1000 Losartan Potassium [Cozaar] Med 09/04/18 10:00 Active 100 mg PO DAILY Pantoprazole Sodium [Protonix] Med 09/04/18 10:00 Active 40 mg PO DAILY Primary Care Provider: Out of Town Doctor Referring Provider:
--- NOTE | 2018-09-04 15:42 | CON.PCM_ITS ---
Subjective Date of Service:: 09/04/18 Chief Complaint: Pancreatic cancer History of Present Illness: Patient is a 63-year-old gentleman who was in his usual state of health until February 2018 when he experienced increasing abdominal pain epigastrium radiating to the back, anorexia nausea and vomiting until he was seen at [facility] in May 2018 then transferred to [facility] was what was believed to be stone pancreatitis. He underwent ERCP where an obstructive lesion was found and the wire could not be passed beyond, then he underwent MRCP that revealed a pancreatic mass. He then underwent an ERCP with sphincterotomy and stent placement with endoscopic ultrasound FNA biopsy of the pancreatic mass confirming an adenocarcinoma. His CA 19-9 was 6081.3 (outside hospital), over 2000 at [facility] lab. Staging CT scan of the abdomen demonstrated the pancreatic mass infiltrating around the SMA, SMV, celiac and proximal common hepatic artery and infiltrating down to the level of the raymond of the diaphragm. His pretreatment CT scans of the chest abdomen and pelvis and bone scan did not suggest metastatic disease. Initially a palliative approach with systemic chemotherapy consisting of gemcitabine and Abraxane was advised by [facility]. Patient sought second opinion per Dr. Witt at [facility] who advised an attempt at downstaging the cancer with modified FOLFIRINOX (Oxaliplatin 60 mg/m?, Irinotecan 120 mg/m? and 5-FU 1900 mg/m?) followed by restaging and reassessment for resectability. The patient favored the more aggressive approach with intent to cure. Began neoadjuvant modified FOLFIRINOX (Oxaliplatin 60 mg/m?, Irinotecan 120 mg/m? and 5-FU 1900 mg/m?) July 21, 2018 at [facility]. Received cycle 4 on 09/01/18 and when presented on 09/03/18 for CADD pump removal, patient c/o left sided abd pain and reflux, thus was encouraged to be evaluated acutely in the ED. CT abd at that time revealed sigmoid diverticulitis with small perforation. Upon entering his room, he is lying comfortably in bed. Reports LLQ pain only occurs if abd is deeply palpated and hiccups/heartburn are also improved. Reports 1 episode of diarrhea earlier today, resolved without intervention. Past Medical History: Chronic Problems (Last Reviewed 09/03/18 @ 20:11 by Ger Sosa MD) Pancreas cancer (Chronic) Past Medical/Surgical History: Past Medical History - Most Recent Inpatient Visit Past Medical History Start: 09/03/18 19:56 Text: Status: Complete Freq: ONCE Protocol: Document 09/03/18 20:13 MM (Rec: 09/03/18 20:19 MM [id number]) BMI Required to complete PMH What is Patient's BMI 28.2 Past Medical History Unable History Recalled No Query Text:Pt Unable/Family Not Present Neurologic Medical History Hx Stroke/TIA No Hx Dementia/Alzheimer's No Hx Parkinson's Disease No Hx Seizures No Hx Multiple Sclerosis No Hx Migraines Yes Cardiac Medical History VTE Present on Admission No Hx of Deep Vein Thrombosis/VTE/PE No Hx Hypertension Yes Hx Chest Pain/Angina No Hx Heart Attack No Hx Cardiac Surgery/Stents/Etc. No Hx Heart Failure No Hx Pacemaker/AICD No Hx Irregular Heartbeat and/or Afib No Hx Anticoagulant Therapy No Query Text:(Coumadin, Aspirin, Plavix, Xarelto, etc.) Hx Pain in Legs when Walking/Leg Cramps No Respiratory Medical History Hx COPD No Hx Emphysema No Hx Smoking No Smoking Status Never smoker Tobacco Use Secondhand Hx Smoking Exposure Yes: as a child Hx Tobacco Use in last 12 months No Hx of Pipe Smoking No Hx of Cigar Smoking No Hx Sleep Apnea No CPAP No BIPAP No Do you snore loudly (louder than talking Yes or can be heard through closed doors)? Do you often feel tired/ fatigued/ No sleepy during daytime? Has anyone observed you stop breathing Yes during sleep? STOP Results Positive GI Medical History Hx Ulcer No Hx Hepatitis No Hx Cirrhosis No Hx GI Bleed No Hx Unplanned Weight Loss Yes Comments Bile duct stent Genitourinary Medical History Indwelling Catheter in Place on Arrival/ No Admission Hx Renal Disease No Hx Dialysis No Musculoskeletal History Hx Arthritis No Hx Rheumatoid Arthritis No Endocrine Medical History Hx Diabetes No Hx Thyroid Disease No Hematologic Medical History Hx of Blood Transfusion No Hx of Transfusion in last 3 Months No Ever experience any problems with No transfusion(s)? Hx of Preganancy in last 3 Months N/A Nurse Filling Out Transfusion & MMELUCH Questions: Date: 09/03/18 Time: 20:16 Psycho/Social Medical History Hx Depression Yes Hx Anxiety Yes Hx Behavior Disorder No Hx Alcohol Use No Hx Substance Use No Other Medical History Hx Blood Disorders No Hx Anemia No Hx Cancer Yes: pancreatic, prostate, left foot great toe removed d/ t cancer Hx Drug Resistant Organism No Wound/Pressure Injury Present on Arrival No /Admission Query Text:If yes, chart assessment in Shift/Clinical Findings Central Line/PICC/VAD Present on Arrival Yes /Admission Antibiotics within last 7 days? No Comments port in left arm-placed at [facility] Methicillin Resistant Staphylococcus aureus Screening Active MRSA No Risk for Readmission Number of Risk Factors 4 At Risk for Readmission Patient is At Risk For Readmission Patient is eligible for Call Back Y Past Medical History (Last Reviewed 09/03/18 @ 20:11 by Ger Sosa MD) Gallstones (Acute) INSERTION CVC TUNNELED WITH PORT PUMP (Acute) Pancreatic mass (Acute) Peyronie's disease (Acute) Prostate cancer (Acute) Past Surgical History (Last Reviewed 09/03/18 @ 19:57 by Ger Sosa MD) History of biliary duct stent placement (Acute) History of ear surgery (Acute) History of toe surgery (Acute) Maternal Family History: Family History (Last Reviewed 09/03/18 @ 19:58 by Ger Sosa MD) Brother Arthritis Father Myocardial infarction Paternal Family History: Family History (Last Reviewed 09/03/18 @ 19:58 by Ger Sosa MD) Brother Arthritis Father Myocardial infarction Family History: - - Paternal family with a history of muscular dystrophy and heart disease. Maternal family with a history of heart disease. - Social History Lives: Spouse/ Significant Other Smoking Status: Never smoker Tobacco Use: Secondhand Alcohol: None Allergies/Adverse Reactions: Allergy/AdvReac Type Severity Reaction Status Date / Time No Known Allergies Allergy Verified 09/03/18 15:14 Review of Systems Constitutional:: Reports: Fatigue. Denies: Fever, Sweats, Weight loss, Appetite change, Chills Cardiovascular:: Denies: Chest pain, Palpitations, Dyspnea on exertion, Orthopnea, PND, Shortness of breath Respiratory: Denies: Cough, Hemoptysis, Shortness of Breath, Wheezing Gastrointestinal:: Reports: Abdominal pain, Diarrhea. Denies: Nausea, Vomiting, Constipation, Melena, Hematochezia Genitourinary: Denies: Dysuria, Hematuria, 15, Flank pain Musculoskeletal:: Denies: Back pain, Myalgia, Arthralgia Skin: Denies: Rash, Skin Changes, Wounds Neurological:: Denies: Headache, Dizziness, Numbness, Tingling, Visual changes, Tinnitus, Hearing loss Psychiatric: Denies: Anxiety, Depression, Homicidal Ideations, Suicidal Ideations Vital Signs Height 5 ft 4 in Weight: 164 lb 3.91 oz Weight in Pounds 164.2 lbs Pulse Ox 95 Temperature 98.6 F Pulse Rate 75 Respiratory Rate 18 Blood Pressure [BP] 96/62 Blood Pressure 95/64 Blood Pressure Position [BP] Semi-Fowlers Blood Pressure Position Semi-Fowlers - Physical Exam General: Alert, Oriented x3, No apparent distress HEENT: Atraumatic, Normocephalic, - - wears glasses Oropharynx:: Negative for: Dry mucosa, Ulcerated lesions Neck:: Supple, Trachea midline. Negative for: JVD, bilateral Cardiac:: Regular rate, Regular rhythm, Normal S1, Normal S2. Negative for: Murmur Lungs: Clear to auscultation, Excusion symmetrical. Negative for: Rhonchi, Whee zes Abdomen:: Bowel sounds x 4, Soft, Non-distended, Tender - LLQ. Negative for: Hepatosplenomegaly Extremities:: Negative for: Cyanosis, Edema, Calf tenderness Neurological: Neuro grossly intact Skin:: Negative for: Lesions, Rash, Petechiae, Ecchymosis Psychiatric:: Appropriate affect - shares he is dissappointed about admission as a set back and fears his next chemotherapy will be delayed as a result of it, Euthymic Lymphatics:: Negative for: Cervical lymphadenopathy, Supraclavicular lymphadenopathy, Axillary lymphadenopathy Laboratory Data: Laboratory Tests 09/04/18 09/04/18 09/03/18 Range/Units 05:37 05:37 15:58 WBC 10.3 (4.4-11.0) K/mm3 RBC 3.68 L (4.6-6.2) M/mm3 Hgb 10.5 L (13.0-16.5) g/dl Hct 32.6 L (40-54) % MCV 88.6 (80-94) fL MCH 28.5 (27.0-32.0) pg MCHC 32.2 (32-36) g/gl RDW 14.1 (11.6-14.6) % RDW Differential 44.2 H (35.1-43.9) fl Plt Count 271 (150-450) K/mm3 MPV 9.2 (6.2-12.0) fl Immature Gran % (Auto) 0.900 (0.0-0.9) % Neut % (Auto) 90.9 H (47-70) % Lymph % (Auto) 6.8 L (19-41) % [place] % (Auto) 1.1 (0-10) % Eos % (Auto) 0.2 (0-5) % Baso % (Auto) 0.1 (0-1) % Absolute Neuts (auto) 9.4 H (2.0-7.7) X10^3/uL Absolute Lymphs (auto) 0.70 L (0.83-4.51) X10^3/ul Total Counted Not Reportable Differential Comment SCANNED Sodium 139 140 (136-145) mmol/L Potassium 4.3 4.0 (3.5-5.1) mmol/L Chloride 103 103 (98-107) mmol/L Carbon Dioxide 27.0 28.0 (21.0-32.0) mmol/L Anion Gap 9 9 (5-15) BUN 18 19 H (7-18) mg/dL Creatinine 0.99 0.87 (0.70-1.30) mg/dL Estim Creat Clear Calc 62.29 70.88 ml/min Est GFR (MDRD) Af Amer 98 114 (>60) mL/min Est GFR (MDRD) Non-Af 81 94 (>60) mL/min BUN/Creatinine Ratio 18.2 21.9 H (10-20) RATIO Glucose 161 H 197 H (74-106) mg/dL Calcium 8.4 L 9.1 (8.5-10.1) mg/dL Total Bilirubin 0.70 (0.20-1.00) mg/dL AST 17 (15-37) U/L ALT 64 H (16-61) U/L Alkaline Phosphatase 204 H (45-117) U/L Troponin I < 0.015 (<0.045) ng/mL Total Protein 6.6 (6.4-8.2) g/dL Albumin 2.9 L (3.2-5.0) g/dL Globulin 3.7 (2.2-4.2) g/dL Albumin/Globulin Ratio 0.8 L (0.9-2.4) RATIO Lipase 75 (73-393) U/L 09/03/18 Range/Units 15:58 WBC 7.3 (4.4-11.0) K/mm3 RBC 4.14 L (4.6-6.2) M/mm3 Hgb 11.6 L (13.0-16.5) g/dl Hct 36.0 L (40-54) % MCV 87.0 (80-94) fL MCH 28.0 (27.0-32.0) pg MCHC 32.2 (32-36) g/gl RDW 14.1 (11.6-14.6) % RDW Differential 44.5 H (35.1-43.9) fl Plt Count 280 (150-450) K/mm3 MPV 8.5 (6.2-12.0) fl Immature Gran % (Auto) 0.300 (0.0-0.9) % Neut % (Auto) 84.4 H (47-70) % Lymph % (Auto) 12.6 L (19-41) % [place] % (Auto) 2.7 (0-10) % Eos % (Auto) 0.0 (0-5) % Baso % (Auto) 0.0 (0-1) % Absolute Neuts (auto) 6.2 (2.0-7.7) X10^3/uL Absolute Lymphs (auto) 0.92 (0.83-4.51) X10^3/ul Total Counted Not Reportable Differential Comment Sodium (136-145) mmol/L Potassium (3.5-5.1) mmol/L Chloride (98-107) mmol/L Carbon Dioxide (21.0-32.0) mmol/L Anion Gap (5-15) BUN (7-18) mg/dL Creatinine (0.70-1.30) mg/dL Estim Creat Clear Calc ml/min Est GFR (MDRD) Af Amer (>60) mL/min Est GFR (MDRD) Non-Af (>60) mL/min BUN/Creatinine Ratio (10-20) RATIO Glucose (74-106) mg/dL Calcium (8.5-10.1) mg/dL Total Bilirubin (0.20-1.00) mg/dL AST (15-37) U/L ALT (16-61) U/L Alkaline Phosphatase (45-117) U/L Troponin I (<0.045) ng/mL Total Protein (6.4-8.2) g/dL Albumin (3.2-5.0) g/dL Globulin (2.2-4.2) g/dL Albumin/Globulin Ratio (0.9-2.4) RATIO Lipase (73-393) U/L Diagnostic Data: Diagnostic Data Abdomen/Pelvis CT 09/03/18 15:37 IMPRESSION: Acute diverticulitis of the mid descending colon with no evidence for abscess, but with localized perforation. Stable appearance of pancreatic head mass consistent with locally invasive pancreatic cancer. Electronically Signed: Osmin Cannon MD at 17:52 EDT , Service support , Chest X-Ray 09/03/18 17:35 IMPRESSION: No acute chest disease. Electronically Signed: Osmin Cannon MD at 17:54 EDT , Service support , Assessment and Plan 63-year-old gentleman with at least clinical stage III pancreatic cancer (T4, Nx, Mx). Imaging at the time of initial staging did not suggest metastatic disease. Receiving neoadjuvant chemotherapy. Presented to ED 09/03/18 with c/o LLQ, sigmoid diverticulitis evident and subsequently admitted for management. 1. Stage III pancreatic cancer- Presently receiving neoadjuvant modified (to avoid excessive toxicities) FOLFIRINOX (Oxaliplatin 60 mg/m?, Irinotecan 120 mg/m? and 5-FU 1900 mg/m?). Started July 21, 2018. Main toxicities experienced are diarrhea and neutropenia (now receiving Neulasta following even-numbered cycles of chemotherapy). Cycle 4 administered on 09/01/18. CT abd/pelvis obtained 09/03/18 reviewed, report indicates stable appearance of pancreatic head mass. CBC reviewed and within acceptable parameters. He is otherwise not endorsing any signs or symptoms of toxicity associated with FOLFIRNOX at this time. CT imaging and follow-up with surgery at [facility] is tentatively planned for mid September. 2. Acute sigmoid diverticulitis- with small perforation. Managed by primary team. 3. Hiccups/Heartburn- Hiccups may be medication induced associated with dexamethasone, oxaliplatin or fluorouracil. Patient reports symptom is now improved. Reflux likely attributable to steroid use, continue PPI. Emotional support provided. Patient to follow-up with Dr. Archer at [facility] upon discharge. Aydee Noble, MSN, AMMONIA NITRATE OPERATOR, AOCNP Medications: Prescriptions This Visit Medication Instructions Recorded Oxycodone [Oxyir] 5 mg PO PRN PRN 09/03/18 Medications Added to Medication List This Visit Category Date Time Status Citalopram [Celexa] Med 09/04/18 10:00 Active 40 mg PO DAILY Enoxaparin [Lovenox] Med 09/04/18 10:00 Active 40 mg SC DAILY@1000 Losartan Potassium [Cozaar] Med 09/04/18 10:00 Active 100 mg PO DAILY Pantoprazole Sodium [Protonix] Med 09/04/18 10:00 Active 40 mg PO DAILY Primary Care Provider: Out of Town Doctor Referring Provider:
[2018-09-04] MEDS: Loperamide 2 MG Capsule 4 MG PO (19:56)
[2018-09-05] VITALS (10 sets, daily range): BP systolic 68–117; BP diastolic 30–70; PULSE 81–133; RESP 16; TEMP 36.2–37.2; O2SAT 93–95
[2018-09-05] MEDS: 0.9% Normal Saline 1,000 ML 999 ML IV ×2 (03:05→04:05)
--- NOTE | 2018-09-05 03:07 | NURSING ---
Pt. vital signs taken at 0230. Blood pressure 79/52. Pt. awake and alert talking wanting to sit up to use the bathroom. Sat patient on side of bed and had him sit for a few minutes to make sure was not dizzy, pt. was okay. As soon as patient stood up patient got dizzy and passed out. This Nurse helped the patient back into bed and put the bed in trendelenburg. Blood pressure retaken was 100/67. Pt. attempted again to get up and use the urinal but passed out again. this nurse once again put the patient in trendelenburg position and the patient is now advised not to get up at this time. HR is 83, Temp. 98.6 oral and spo2 is 93% on room air. Hospitalist notified. Labs orderd as well as 2L Normal saline bolus. Recheck blood pressure in 1 hour if now improvement will need to be transferred to ICU.
[2018-09-05 04:08] LABS: Hemoglobin 9.7 g/dl (13.0-16.5); Mean Corp Hgb Conc 32.3 g/gl (32-36); Mean Corpuscular Hgb 28.6 pg (27.0-32.0); Mean Corpuscular Volume 88.5 fL (80-94); Mean Platelet Vol. 9.1 fl (6.2-12.0); Platelet Count 225 K/mm3 (150-450); RBC Distribution Width CV 13.8 % (11.6-14.6); RBC Distribution Width SD 43.1 fl (35.1-43.9); Red Blood Count 3.39 M/mm3 (4.6-6.2); White Blood Count 12.3 K/mm3 (4.4-11.0)
[2018-09-05 04:12] LABS: Differential Indicated MANUAL DIFF; POSITIVE COUNT YES; POSITIVE DIFFERENTIAL NO; POSITIVE MORPHOLOGY YES
[2018-09-05 04:18] LABS: Anion Gap 7 (5-15); BUN 11 mg/dL (7-18); Calcium,Total 7.9 mg/dL (8.5-10.1); Chloride 108 mmol/L (98-107); Creatinine, Serum 0.73 mg/dL (0.70-1.30); EST Glomerular Filtration Rate 114 mL/min (>60); Est Glom Filt Rate - Afr Amer 138 mL/min (>60); Estimated Creatinine Clearance 84.47 ml/min; Glucose 95 mg/dL (74-106); Potassium 3.2 mmol/L (3.5-5.1); Sodium Level 140 mmol/L (136-145)
[2018-09-05 04:20] LABS: Lactic Acid 1.1 mmol/L (0.4-2.0)
[2018-09-05 04:36] LABS: Basophil 1 % (0-1); Eosinophil 2 % (0-5); Lymphocyte 6 % (19-41); Monocyte 3 % (0-10); Neutrophil-Band 2 % (0-5); Neutrophil-Segmented 86 % (47-70); Platelet Estimate ADEQUATE (ADEQ); Red Cell Morphology NORM C+C NORMAL (NORM C&C); Total Cells Counted 100 (MANUAL DIFF)
[2018-09-05 04:37] LABS: Absolute Lymphocyte Count 0.74 X10^3/ul (0.83-4.51); Absolute Neutrophil Count 10.8 X10^3/uL (2.0-7.7); Lymphocyte # 0.74 X10^3/ul (4.0); Neutrophil # 10.82 X10^3/uL (2.7-7.7)
[2018-09-05] MEDS: 0.9% Normal Saline 1,000 ML 100 ML IV ×2 (05:33→14:21)
--- NOTE | 2018-09-05 10:00 | PN.SURG_ITS ---
Patient Problems: Active and Suspected Problems (Last Reviewed 09/03/18 @ 20:11 by Ger Sosa MD) Diverticulitis (Acute) Chemotherapy induced neutropenia (Acute) - Physical Exam General: Alert, Oriented x3, Cooperative Lungs: Clear to auscultation, Normal air movement Cardiovascular: Regular rate, No murmurs Abdomen: Bowel Sounds Present, Soft, Non Tender Vital Signs Temp Pulse Resp BP Pulse Ox 99.0 F 85 16 109/67 94 09/05/18 09:16 09/05/18 09:16 09/05/18 09:16 09/05/18 09:16 09/05/18 09:16 Oxygen Delivery Method Room Air Weight: 74.5 kg Body Mass Index (BMI) 28.1 Orthostatic Vital Signs Start: 09/05/18 04:10 Freq: q24h Status: Active Protocol: Activity Type Activity Date Activity User E-Sign Co-Sign Detail Recorded Client Recorded Date Recorded By Document 09/05/18 05:28 [place] [id number] 09/05/18 05:30 [place] 09/05/18 05:28 Orthostatic Vitals Standing -Blood Pressure (90/60-120/80) 72/47 L -Extremity Use Right Arm -Pulse Rate (60-100) 104 H Sitting -Blood Pressure (90/60-120/80) 89/61 L -Extremity Use Right Arm -Pulse Rate (60-100) 98 Lying -Blood Pressure (90/60-120/80) 112/67 -Extremity Use Right Arm -Pulse Rate (60-100) 81 Intake and Output for Last 24 Hours 09/03/18 09/04/18 09/05/18 23:59 23:59 23:59 Intake Total 2316 / 2316 3372 / 3372 Output Total 650 / 650 300 / 300 Balance 1666 / 1666 3072 / 3072 Laboratory Tests Past 24 Hrs 09/05/18 09/05/18 09/05/18 03:41 03:41 03:41 WBC 12.3 H RBC 3.39 L Hgb 9.7 L Hct 30.0 L MCV 88.5 MCH 28.6 MCHC 32.3 RDW 13.8 RDW Differential 43.1 Plt Count 225 MPV 9.1 Immature Gran % (Auto) OCCUPATIONAL THERAPIST AIDE Neut % (Auto) OCCUPATIONAL THERAPIST AIDE Lymph % (Auto) OCCUPATIONAL THERAPIST AIDE [place] % (Auto) OCCUPATIONAL THERAPIST AIDE Eos % (Auto) OCCUPATIONAL THERAPIST AIDE Baso % (Auto) OCCUPATIONAL THERAPIST AIDE Absolute Neuts (auto) 10.8 H Absolute Lymphs (auto) 0.74 L Total Counted 100 Neutrophils % (Manual) 86 H Band Neutrophils % 2 Lymphocytes % (Manual) 6 L Monocytes % (Manual) 3 Eosinophils % (Manual) 2 Basophils % (Manual) 1 Diff Path Review May foll Platelet Estimate ADEQUATE RBC Morphology NORM C+C Sodium 140 Potassium 3.2 L Chloride 108 H Carbon Dioxide 25.0 Anion Gap 7 BUN 11 Creatinine 0.73 Estim Creat Clear Calc 84.47 Est GFR (MDRD) Af Amer 138 Est GFR (MDRD) Non-Af 114 BUN/Creatinine Ratio 15.0 Glucose 95 Lactic Acid 1.1 Calcium 7.9 L Medical Necessity - Tobacco Use Smoking Status: Never smoker Tobacco Use: Secondhand Assessment/Plan All Active Problems (Last Reviewed 09/03/18 @ 20:11 by Ger Sosa MD) Diverticulitis (Acute) Chemotherapy induced neutropenia (Acute) Chemotherapy induced nausea and vomiting (Acute) diverticulitis- Patient is currently on IV antibiotics Flagyl and Cipro - which is appropriate. patient was given a laxative yesterday which I do not wish the patient to receive. I am comfortable with the patient receiving clear liquids currently and and willing to advance this to low residue diet so there is minimal stool flow past the area of diverticulitis. patient's white blood cell count is somewhat increased but will follow the patient clinically as following his white blood cell count in the midst of chemotherapy and Neulasta treatment will not clearly differentiate change in his overall state of his diverticulitis.
[2018-09-05] MEDS: Ciprofloxacin 400 MG/200 ML BAG 200 MG IV ×2 (10:32→21:25)
[2018-09-05] MEDS: Enoxaparin 40 MG/0.4 ML Syringe SC (10:33)
[2018-09-05] MEDS: Pantoprazole Sodium 40 MG Tablet PO (10:33)
[2018-09-05] MEDS: Citalopram 40 MG TABLET PO (10:33)
[2018-09-05] MEDS: 0.9% Normal Saline 1,000 ML 500 ML IV (11:54)
--- NOTE | 2018-09-05 18:49 | PCM.PROGNOTE ---
Patient Problems: Active and Suspected Problems (Last Reviewed 09/03/18 @ 20:11 by Ger Sosa MD) Diverticulitis (Acute) Chemotherapy induced neutropenia (Acute) Subjective: She was seen and examined today, he appears to have less left lower quadrant abdominal pain today, I talked with his who is in the room today during my examination. - Physical Exam General: Alert, Oriented x3, Cooperative, No apparent distress, Well developed, Well nourished HEENT: Atraumatic, PERRLA, EOMI, Normocephalic Oral: Moist Mucosa Neck: Supple, No Nuchal Rigidity, Trachea Midline, Thyroid Normal Size and Texture Lungs: Clear to auscultation, Normal air movement, No rhonchi, No wheeze Cardiovascular: Regular rate, Regular Rhythm, Normal S1, Normal S2, No murmurs, No Ectopic Activity, PMI Normal, No rub noted, No Gallop Abdomen: Bowel Sounds Present, Soft, Non-Distended, No hernias noted Extremities: No clubbing, No cyanosis, No edema, Capillary Refill Less than 3 Seconds Skin: No rashes, No breakdown Musculoskeletal: No Tenderness to Palpation of Joints or Extremities Neurological: Cranial nerves II-XII grossly intact, Neuro grossly intact, Sensory exam intact to light touch and pain, Coordination normal Psych/Mental Status: Normal Affect, Appropriate, Alert and oriented to time, place, person, mood and affect Vital Signs Temp Pulse Resp BP Pulse Ox 98.8 F 82 16 110/69 94 09/05/18 15:16 09/05/18 15:16 09/05/18 15:16 09/05/18 15:16 09/05/18 15:16 Oxygen Delivery Method Room Air Weight: 74.5 kg Body Mass Index (BMI) 28.1 Orthostatic Vital Signs Start: 09/05/18 04:10 Freq: q24h Status: Active Protocol: Activity Type Activity Date Activity User E-Sign Co-Sign Detail Recorded Client Recorded Date Recorded By Document 09/05/18 11:15 [facility] [id number] 09/05/18 11:19 MINOR 09/05/18 11:15 Orthostatic Vitals Standing -Blood Pressure (90/60-120/80) 68/42 L -Extremity Use Right Arm -Pulse Rate (60-100) 106 H Sitting -Blood Pressure (90/60-120/80) 92/59 L -Extremity Use Right Arm -Pulse Rate (60-100) 92 Lying -Blood Pressure (90/60-120/80) 116/70 -Extremity Use Right Arm -Pulse Rate (60-100) 86 Intake and Output for Last 24 Hours 09/03/18 09/04/18 09/05/18 23:59 23:59 23:59 Intake Total 2316 / 2316 5052 / 5052 Output Total 650 / 650 900 / 900 Balance 1666 / 1666 4152 / 4152 Laboratory Tests Past 24 Hrs 09/05/18 09/05/18 09/05/18 03:41 03:41 03:41 WBC 12.3 H RBC 3.39 L Hgb 9.7 L Hct 30.0 L MCV 88.5 MCH 28.6 MCHC 32.3 RDW 13.8 RDW Differential 43.1 Plt Count 225 MPV 9.1 Immature Gran % (Auto) PRODUCT ENGINEER Neut % (Auto) PRODUCT ENGINEER Lymph % (Auto) PRODUCT ENGINEER [place] % (Auto) PRODUCT ENGINEER Eos % (Auto) PRODUCT ENGINEER Baso % (Auto) PRODUCT ENGINEER Absolute Neuts (auto) 10.8 H Absolute Lymphs (auto) 0.74 L Total Counted 100 Neutrophils % (Manual) 86 H Band Neutrophils % 2 Lymphocytes % (Manual) 6 L Monocytes % (Manual) 3 Eosinophils % (Manual) 2 Basophils % (Manual) 1 Diff Path Review May foll Platelet Estimate ADEQUATE RBC Morphology NORM C+C Sodium 140 Potassium 3.2 L Chloride 108 H Carbon Dioxide 25.0 Anion Gap 7 BUN 11 Creatinine 0.73 Estim Creat Clear Calc 84.47 Est GFR (MDRD) Af Amer 138 Est GFR (MDRD) Non-Af 114 BUN/Creatinine Ratio 15.0 Glucose 95 Lactic Acid 1.1 Calcium 7.9 L Medical Necessity - Tobacco Use Smoking Status: Never smoker Tobacco Use: Secondhand Assessment/Plan All Active Problems (Last Reviewed 09/03/18 @ 20:11 by Ger Sosa MD) Diverticulitis (Acute) Chemotherapy induced neutropenia (Acute) Chemotherapy induced nausea and vomiting (Acute) #1 acute sigmoid diverticulitis with probable microperforation of the sigmoid colon-continue IV Cipro and metronidazole, general surgery is continuing to see the patient, it is expected the patient will not require surgery #2 pancreatic cancer #3 Essential hypertension-patient's blood pressure is been low today and I have stopped his Cozaar, we will continue to monitor the patient's blood pressure, he is receiving IV fluids at this time. #4 Depression #5 hypokalemia-patient was given oral potassium today Code Visit Inpatient E&M: 02881 Subs Hosp L2
--- NOTE | 2018-09-05 18:53 | PN_ITS ---
Patient Problems: Active and Suspected Problems (Last Reviewed 09/03/18 @ 20:11 by Ger Sosa MD) Diverticulitis (Acute) Chemotherapy induced neutropenia (Acute) Subjective: She was seen and examined today, he appears to have less left lower quadrant abdominal pain today, I talked with his who is in the room today during my examination. - Physical Exam General: Alert, Oriented x3, Cooperative, No apparent distress, Well developed, Well nourished HEENT: Atraumatic, PERRLA, EOMI, Normocephalic Oral: Moist Mucosa Neck: Supple, No Nuchal Rigidity, Trachea Midline, Thyroid Normal Size and Texture Lungs: Clear to auscultation, Normal air movement, No rhonchi, No wheeze Cardiovascular: Regular rate, Regular Rhythm, Normal S1, Normal S2, No murmurs, No Ectopic Activity, PMI Normal, No rub noted, No Gallop Abdomen: Bowel Sounds Present, Soft, Non-Distended, No hernias noted Extremities: No clubbing, No cyanosis, No edema, Capillary Refill Less than 3 Seconds Skin: No rashes, No breakdown Musculoskeletal: No Tenderness to Palpation of Joints or Extremities Neurological: Cranial nerves II-XII grossly intact, Neuro grossly intact, Sensory exam intact to light touch and pain, Coordination normal Psych/Mental Status: Normal Affect, Appropriate, Alert and oriented to time, place, person, mood and affect Vital Signs Temp Pulse Resp BP Pulse Ox 98.8 F 82 16 110/69 94 09/05/18 15:16 09/05/18 15:16 09/05/18 15:16 09/05/18 15:16 09/05/18 15:16 Oxygen Delivery Method Room Air Weight: 74.5 kg Body Mass Index (BMI) 28.1 Orthostatic Vital Signs Start: 09/05/18 04:10 Freq: q24h Status: Active Protocol: Activity Type Activity Date Activity User E-Sign Co-Sign Detail Recorded Client Recorded Date Recorded By Document 09/05/18 11:15 [facility] [id number] 09/05/18 11:19 MINOR 09/05/18 11:15 Orthostatic Vitals Standing -Blood Pressure (90/60-120/80) 68/42 L -Extremity Use Right Arm -Pulse Rate (60-100) 106 H Sitting -Blood Pressure (90/60-120/80) 92/59 L -Extremity Use Right Arm -Pulse Rate (60-100) 92 Lying -Blood Pressure (90/60-120/80) 116/70 -Extremity Use Right Arm -Pulse Rate (60-100) 86 Intake and Output for Last 24 Hours 09/03/18 09/04/18 09/05/18 23:59 23:59 23:59 Intake Total 2316 / 2316 5052 / 5052 Output Total 650 / 650 900 / 900 Balance 1666 / 1666 4152 / 4152 Laboratory Tests Past 24 Hrs 09/05/18 09/05/18 09/05/18 03:41 03:41 03:41 WBC 12.3 H RBC 3.39 L Hgb 9.7 L Hct 30.0 L MCV 88.5 MCH 28.6 MCHC 32.3 RDW 13.8 RDW Differential 43.1 Plt Count 225 MPV 9.1 Immature Gran % (Auto) INSURANCE RISK SURVEYOR Neut % (Auto) INSURANCE RISK SURVEYOR Lymph % (Auto) INSURANCE RISK SURVEYOR [place] % (Auto) INSURANCE RISK SURVEYOR Eos % (Auto) INSURANCE RISK SURVEYOR Baso % (Auto) INSURANCE RISK SURVEYOR Absolute Neuts (auto) 10.8 H Absolute Lymphs (auto) 0.74 L Total Counted 100 Neutrophils % (Manual) 86 H Band Neutrophils % 2 Lymphocytes % (Manual) 6 L Monocytes % (Manual) 3 Eosinophils % (Manual) 2 Basophils % (Manual) 1 Diff Path Review May foll Platelet Estimate ADEQUATE RBC Morphology NORM C+C Sodium 140 Potassium 3.2 L Chloride 108 H Carbon Dioxide 25.0 Anion Gap 7 BUN 11 Creatinine 0.73 Estim Creat Clear Calc 84.47 Est GFR (MDRD) Af Amer 138 Est GFR (MDRD) Non-Af 114 BUN/Creatinine Ratio 15.0 Glucose 95 Lactic Acid 1.1 Calcium 7.9 L Medical Necessity - Tobacco Use Smoking Status: Never smoker Tobacco Use: Secondhand Assessment/Plan All Active Problems (Last Reviewed 09/03/18 @ 20:11 by Ger Sosa MD) Diverticulitis (Acute) Chemotherapy induced neutropenia (Acute) Chemotherapy induced nausea and vomiting (Acute) #1 acute sigmoid diverticulitis with probable microperforation of the sigmoid colon-continue IV Cipro and metronidazole, general surgery is continuing to see the patient, it is expected the patient will not require surgery #2 pancreatic cancer #3 Essential hypertension-patient's blood pressure is been low today and I have stopped his Cozaar, we will continue to monitor the patient's blood pressure, he is receiving IV fluids at this time. #4 Depression #5 hypokalemia-patient was given oral potassium today Code Visit Inpatient E&M: 58079 Subs Hosp L2
[2018-09-05] MEDS: Loperamide 2 MG Capsule 4 MG PO (23:02)
[2018-09-06 03:00] VITALS: BP 133/78; PULSE 69; RESP 16; TEMP 36.8; O2SAT 95
[2018-09-06] MEDS: 0.9% Normal Saline 1,000 ML 100 ML IV (03:53)
[2018-09-06] MEDS: Loperamide 2 MG Capsule PO ×3 (06:09→22:50)
[2018-09-06 06:38] LABS: Absolute Lymphocyte Count 1.26 X10^3/ul (0.83-4.51); Absolute Neutrophil Count 13.7 X10^3/uL (2.0-7.7); Basophil# 0.03 X10^3/uL; Basophil% 0.2 % (0-1); Eosinophils% 2.5 % (0-5); Hematocrit 32.9 % (40-54); Hemoglobin 10.5 g/dl (13.0-16.5); Lymphocyte # 1.26 X10^3/ul (4.0); Mean Corp Hgb Conc 31.9 g/gl (32-36); Mean Corpuscular Hgb 28.2 pg (27.0-32.0); Mean Corpuscular Volume 88.4 fL (80-94); Monocyte# 0.24 X10^3/uL; Monocyte% 1.5 % (0-10); Neutrophil # 13.73 X10^3/uL (2.7-7.7); Neutrophil % 86.8 % (47-70); Platelet Count 223 K/mm3 (150-450); RBC Distribution Width CV 14.1 % (11.6-14.6); RBC Distribution Width SD 45.5 fl (35.1-43.9); Red Blood Count 3.72 M/mm3 (4.6-6.2); White Blood Count 15.8 K/mm3 (4.4-11.0)
[2018-09-06 06:40] LABS: Differential Indicated SCAN CRITERIA MET; POSITIVE COUNT NO; POSITIVE DIFFERENTIAL NO; POSITIVE MORPHOLOGY YES
[2018-09-06 06:41] LABS: Anion Gap 9 (5-15); BUN 3 mg/dL (7-18); BUN/Creat Ratio 3.8 RATIO (10-20); Calcium,Total 8.2 mg/dL (8.5-10.1); Chloride 110 mmol/L (98-107); Creatinine, Serum 0.79 mg/dL (0.70-1.30); EST Glomerular Filtration Rate 104 mL/min (>60); Est Glom Filt Rate - Afr Amer 126 mL/min (>60); Estimated Creatinine Clearance 78.06 ml/min; Glucose 99 mg/dL (74-106); Potassium 3.6 mmol/L (3.5-5.1); Sodium Level 143 mmol/L (136-145)
[2018-09-06 07:07] LABS: Differential Comment SCANNED
[2018-09-06 09:31] VITALS: BP 123/77; PULSE 79; RESP 16; TEMP 36.7; O2SAT 96
[2018-09-06] MEDS: Enoxaparin 40 MG/0.4 ML Syringe SC (09:49)
[2018-09-06] MEDS: Citalopram 40 MG TABLET PO (09:49)
[2018-09-06] MEDS: Ciprofloxacin 400 MG/200 ML BAG 200 MG IV (09:49)
[2018-09-06] MEDS: Pantoprazole Sodium 40 MG Tablet PO (09:49)
--- NOTE | 2018-09-06 14:09 | CHAPLAIN ---
Type of Pastoral Visit _x__ Initial Visit ___ Follow-up Visit ___ On-call Visit ___ General Patient Visit ___ Spiritual Assessment ___ Family Conference ___ Bereavement ___ Rapid Response ___ Code Blue ___ Other (describe below) Pastoral Care Referral From _x__ Patient ___ Family ___ Nurse ___ Physician ___ Pc Technician ___ Bulk Mail Clerk ___ Other (describe below) Sacrament/Intervention _x__ Active listening ___ Anointing ___ Islam ___ Bereavement ___ Communion _x__ Jessika exploration ___ ___ Life review _x__ Prayer ___ Reconciliation ___ Sacrament of Sick _x__ Supportive presence ___ Wedding ___ Other (describe below) Pastoral Comments 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
[2018-09-06 14:27] VITALS: BP 128/89; PULSE 82; RESP 16; TEMP 36.9; O2SAT 96
--- NOTE | 2018-09-06 18:22 | PN_ITS ---
Patient Problems: Active and Suspected Problems (Last Reviewed 09/03/18 @ 20:11 by Ger Sosa MD) Diverticulitis (Acute) Subjective: Patient was seen and examined today, he became lightheaded today with physical therapy, I have been holding his blood pressure medications and talked with him and his today who is in the room and stated that when he goes home I would recommend holding his blood pressure medications and getting his blood pressure rechecked by his PCP. Patient's IV fluids were stopped and he was placed on oral antibiotics today, his diet will be advanced per surgery. - Physical Exam General: Alert, Oriented x3, Cooperative, No apparent distress, Well developed HEENT: Atraumatic, PERRLA, EOMI, Normocephalic Oral: Moist Mucosa Neck: Supple, No Nuchal Rigidity, Trachea Midline, Thyroid Normal Size and Texture Lungs: Clear to auscultation, Normal air movement, No rhonchi, No wheeze, No rales Cardiovascular: Regular rate, Regular Rhythm, Normal S1, Normal S2, No murmurs, No Ectopic Activity Abdomen: Bowel Sounds Present, Soft, Non Tender, Non-Distended Extremities: No edema, Capillary Refill Less than 3 Seconds Skin: No rashes, No breakdown Neurological: Cranial nerves II-XII grossly intact, Neuro grossly intact, Sensory exam intact to light touch and pain, Coordination normal Psych/Mental Status: Normal Affect, Appropriate, Alert and oriented to time, place, person, mood and affect Vital Signs Temp Pulse Resp BP Pulse Ox 98.4 F 82 16 128/89 H 96 09/06/18 14:27 09/06/18 14:27 09/06/18 14:27 09/06/18 14:27 09/06/18 14:27 Oxygen Delivery Method Room Air Weight: 74.5 kg Body Mass Index (BMI) 28.1 Intake and Output for Last 24 Hours 09/04/18 09/05/18 09/06/18 23:59 23:59 23:59 Intake Total 2316 / 2316 5052 / 5052 1986 Output Total 650 / 650 900 / 900 Balance 1666 / 1666 4152 / 4152 1986 Laboratory Tests Past 24 Hrs 09/06/18 09/06/18 06:06 06:06 WBC 15.8 H RBC 3.72 L Hgb 10.5 L Hct 32.9 L MCV 88.4 MCH 28.2 MCHC 31.9 L RDW 14.1 RDW Differential 45.5 H Plt Count 223 MPV 9.0 Immature Gran % (Auto) 1.000 H Neut % (Auto) 86.8 H Lymph % (Auto) 8.0 L [place] % (Auto) 1.5 Eos % (Auto) 2.5 Baso % (Auto) 0.2 Absolute Neuts (auto) 13.7 H Absolute Lymphs (auto) 1.26 Total Counted Not Reportable Differential Comment SCANNED Sodium 143 Potassium 3.6 Chloride 110 H Carbon Dioxide 24.0 Anion Gap 9 BUN 3 L Creatinine 0.79 Estim Creat Clear Calc 78.06 Est GFR (MDRD) Af Amer 126 Est GFR (MDRD) Non-Af 104 BUN/Creatinine Ratio 3.8 L Glucose 99 Calcium 8.2 L Medical Necessity - Tobacco Use Smoking Status: Never smoker Tobacco Use: Secondhand Assessment/Plan All Active Problems (Last Reviewed 09/03/18 @ 20:11 by Ger Sosa MD) Diverticulitis (Acute) Chemotherapy induced neutropenia (Acute) Chemotherapy induced nausea and vomiting (Acute) #1 acute sigmoid diverticulitis with probable microperforation of the sigmoid colon-continue present care, surgery is participating in his care #2 pancreatic cancer #3 Essential hypertension-patient's blood pressure medication was stopped due to hypotension during his hospital stay, again, I told the patient I would recommend staying off the blood pressure medicine when he goes home for now and getting his blood pressure rechecked by his PCP. #4 Depression #5 hypokalemia-corrected #6 leukocytosis secondary to Neulasta injection which was given recently Code Visit Inpatient E&M: 41102 Subs Hosp L2
--- NOTE | 2018-09-06 18:56 | PN.SURG_ITS ---
Patient Problems: Active and Suspected Problems (Last Reviewed 09/03/18 @ 20:11 by Ger Sosa MD) Diverticulitis (Acute) Subjective: improved but still some pain - Physical Exam General: Alert, Oriented x3, Cooperative Lungs: Clear to auscultation, Normal air movement Cardiovascular: Regular rate, Regular Rhythm Abdomen: Bowel Sounds Present, Soft, Tender - mild LLQ without diffuse perioneal signs Vital Signs Temp Pulse Resp BP Pulse Ox 98.4 F 82 16 128/89 H 96 09/06/18 14:27 09/06/18 14:27 09/06/18 14:27 09/06/18 14:27 09/06/18 14:27 Oxygen Delivery Method Room Air Weight: 74.5 kg Body Mass Index (BMI) 28.1 Intake and Output for Last 24 Hours 09/04/18 09/05/18 09/06/18 23:59 23:59 23:59 Intake Total 2316 / 2316 5052 / 5052 1986 Output Total 650 / 650 900 / 900 Balance 1666 / 1666 4152 / 4152 1986 Laboratory Tests Past 24 Hrs 09/06/18 09/06/18 06:06 06:06 WBC 15.8 H RBC 3.72 L Hgb 10.5 L Hct 32.9 L MCV 88.4 MCH 28.2 MCHC 31.9 L RDW 14.1 RDW Differential 45.5 H Plt Count 223 MPV 9.0 Immature Gran % (Auto) 1.000 H Neut % (Auto) 86.8 H Lymph % (Auto) 8.0 L [place] % (Auto) 1.5 Eos % (Auto) 2.5 Baso % (Auto) 0.2 Absolute Neuts (auto) 13.7 H Absolute Lymphs (auto) 1.26 Total Counted Not Reportable Differential Comment SCANNED Sodium 143 Potassium 3.6 Chloride 110 H Carbon Dioxide 24.0 Anion Gap 9 BUN 3 L Creatinine 0.79 Estim Creat Clear Calc 78.06 Est GFR (MDRD) Af Amer 126 Est GFR (MDRD) Non-Af 104 BUN/Creatinine Ratio 3.8 L Glucose 99 Calcium 8.2 L Medical Necessity - Tobacco Use Smoking Status: Never smoker Tobacco Use: Secondhand Assessment/Plan All Active Problems (Last Reviewed 09/03/18 @ 20:11 by Ger Sosa MD) Diverticulitis (Acute) Chemotherapy induced neutropenia (Acute) Chemotherapy induced nausea and vomiting (Acute) diverticulitis- Patient is currently on IV antibiotics Flagyl and Cipro - which is appropriate. I am comfortable with the patient receiving clear liquids currently and and willing to advance this to low residue diet so there is minimal stool flow past the area of diverticulitis. patient's white blood cell count is somewhat increased but will follow the patient clinically as following his white blood cell count in the midst of chemotherapy and Neulasta treatment will not clearly differentiate change in his overall state of his diverticulitis. Will transition to oral antibiotics and if patinet still doing well with likely be OK for discharge tomorrow
[2018-09-06 20:10] VITALS: BP 121/79; PULSE 77; RESP 16; TEMP 37.1; O2SAT 96
[2018-09-06] MEDS: Ciprofloxacin 500 MG Tablet PO (21:18)
[2018-09-06] MEDS: metroNIDAZOLE 500 MG Tablet PO (22:16)
[2018-09-07 02:20] VITALS: BP 108/65; PULSE 71; RESP 16; TEMP 36.6; O2SAT 97
[2018-09-07] MEDS: metroNIDAZOLE 500 MG Tablet PO ×2 (05:44→14:31)
[2018-09-07 08:28] VITALS: BP 99/67; PULSE 97; RESP 16; TEMP 36.7; O2SAT 97
[2018-09-07] MEDS: Citalopram 40 MG TABLET PO (10:12)
[2018-09-07] MEDS: Ciprofloxacin 500 MG Tablet PO (10:13)
[2018-09-07] MEDS: Enoxaparin 40 MG/0.4 ML Syringe SC (10:13)
[2018-09-07] MEDS: Pantoprazole Sodium 40 MG Tablet PO (10:13)
--- NOTE | 2018-09-07 12:53 | DCINST_ITS ---
- Discharge Diagnoses Current Active Problems: Current Active and Chronic Problems (Last Reviewed 09/03/18 @ 20:11 by Ger Sosa MD) Diverticulitis (Acute) Reason(s) for Visit for Discharge Instructions: Diverticulitis You will use the following diet at home:: Fiber restricted, Other - Low residue diet Your food should be the consistency of: Regular - Low residue diet, advance as tolerated to regular diet Discharge Activity: Return to Normal Activity Weight Bearing Status: Weight bearing as tolerated Call your doctor if you observe: Fever of 101 or Higher, Inability to have a bowel movement, Uncontrolled pain Allergies/Adverse Reactions: Allergies No Known Allergies Allergy (Verified 09/03/18 15:14) Medications to take at Discharge Acetaminophen [Pain Relief] 1,000 mg PO Q6H PRN 06/24/18 Citalopram [Celexa] 40 mg PO DAILY 06/24/18 Losartan Potassium [Cozaar] 100 mg PO DAILY 06/24/18 Magnesium Hydroxide 2,400 mg PO DAILY PRN 06/24/18 Ondansetron [Zofran] 8 mg PO Q8H PRN PRN 06/24/18 Lidocaine/Prilocaine [Lidocaine-Prilocaine Cream] 5 gm TP UD 06/29/18 Pantoprazole Sodium 40 mg PO DAILY 30 Days #30 tablet. 07/02/18 Oxycodone [Oxyir] 5 mg PO PRN PRN 09/03/18 Primary Care Physician: [facility] Morris,Out of [Primary Care Provider] - Test Results: Test results from this visit will be discussed in further detail at your follow- up appointment, if applicable.
--- NOTE | 2018-09-07 12:53 | PCM.DC.SUM ---
Discharge Date and Diagnosis - Problem List Patient Problems: Active and Suspected Problems (Last Reviewed 09/03/18 @ 20:11 by Ger Sosa MD) Diverticulitis (Acute) Date of Admission: 09/03/18 Date of Discharge: 09/07/18 - Primary Discharge Diagnosis Active and Suspected Problems (Last Reviewed 09/03/18 @ 20:11 by Ger Sosa MD) Diverticulitis (Acute) - Secondary Discharge Diagnosis Chronic Problems (Last Reviewed 09/03/18 @ 20:11 by Ger Sosa MD) Pancreas cancer (Chronic) Hospital Course and Treatment Operations: None Procedures: None Summary of Care Provided: The patient is a 63 year old M with a history of prostate cancer, recently diagnosed stage III pancreatic cancer on chemotherapy, hypertension, GERD and depression who was admitted for acute diverticulitis with localized perforation. Patient was started empirically on IV antibiotics with ciprofloxacin and Flagyl. He was started on a clear liquid diet and was advanced as tolerated. Patient was seen in consultation by surgery and conservative management was recommended. Symptoms appear to have improved and patient was able to tolerate a diet. He was advised to continue a low residue diet and continue with oral antibiotics upon discharge. Patient was noted to have a white count of 15.8 secondary to recent Neulasta use rather than secondary to progressive/worsening diverticulitis. Clinically patient was improved and was stable and ready for discharge. Patient had met maximal hospital benefit and will follow up with his primary care physician and oncologist as scheduled. Patient was noted to have borderline hypotension but was asymptomatic. His losartan was thus held. Patient may resume losartan upon discharge only upon follow-up with PCP. He was advised to hold his blood pressure medication until then. Patient Problems: Active and Suspected Problems (Last Reviewed 09/03/18 @ 20:11 by Ger Sosa MD) Diverticulitis (Acute) Subjective: Patient doing well, states that he was able to tolerate a regular diet and had a cheese omelette this morning. No change in his baseline diarrhea, from chemotherapy. Denies any further abdominal pain, nausea or vomiting. States he feels well and requests to go home. - Physical Exam General: Alert, Oriented x3, Cooperative HEENT: Atraumatic, Normocephalic Neck: Supple Lungs: Clear to auscultation, Normal air movement Cardiovascular: Regular rate, No murmurs Abdomen: Bowel Sounds Present, Soft, Non Tender Extremities: No edema, Capillary Refill Less than 3 Seconds Skin: No rashes, No breakdown Musculoskeletal: No Tenderness to Palpation of Joints or Extremities Neurological: Cranial nerves II-XII grossly intact Psych/Mental Status: Normal Affect, Appropriate Vital Signs Temp Pulse Resp BP Pulse Ox 98.1 F 97 16 99/67 97 09/07/18 08:28 09/07/18 08:28 09/07/18 08:28 09/07/18 08:28 09/07/18 08:28 Oxygen Delivery Method Room Air Weight: 74.5 kg Body Mass Index (BMI) 28.1 Intake and Output for Last 24 Hours 09/05/18 09/06/18 09/07/18 23:59 23:59 23:59 Intake Total 5052 / 5052 1986 840 / 840 Output Total 900 / 900 Balance 4152 / 4152 1986 840 / 840 Discharge Diet: Light diet - advance as tolerated - Low residue diet, advance to regular diet as tolerated, - - Low residue diet Discharge Activity: Return to Normal Activity May resume sexual activity in: No Restrictions Weight Bearing Status: Weight bearing as tolerated Call your doctor if you observe: Fever of 101 or Higher, Inability to have a bowel movement, Uncontrolled pain Home Medications: Medications to take at Discharge Acetaminophen [Pain Relief] 1,000 mg PO Q6H PRN 06/24/18 Citalopram [Celexa] 40 mg PO DAILY 06/24/18 Magnesium Hydroxide 2,400 mg PO DAILY PRN 06/24/18 Ondansetron [Zofran] 8 mg PO Q8H PRN PRN 06/24/18 Lidocaine/Prilocaine [Lidocaine-Prilocaine Cream] 5 gm TP UD 06/29/18 Pantoprazole Sodium 40 mg PO DAILY 30 Days #30 tablet. 07/02/18 Oxycodone [Oxyir] 5 mg PO PRN PRN 09/03/18 Ciprofloxacin [Cipro] 500 mg PO BID 6 Days #12 tablet 09/07/18 Losartan Potassium [Cozaar] 100 mg PO DAILY #0 09/07/18 Metronidazole [Flagyl] 500 mg PO TID 6 Days #18 tablet 09/07/18 Primary Care Physician: [facility] ,Out of [Primary Care Provider] - Disposition: Home Patient Condition:: Good Medical Necessity - Tobacco Use Smoking Status: Never smoker Tobacco Use: Secondhand Meaningful Use Info Meaningful Use Diagnoses (Choose all that apply): None applicable Code Visit Inpatient E&M: 70522 Disch Hosp
[2018-09-07 14:24] VITALS: BP 114/81; PULSE 72; RESP 16; TEMP 36.7; O2SAT 95
[2018-09-07] MEDS: 0.9% NaCl Peripheral Flush Adult/Peds IV (14:54)
[2018-09-07 15:13] LABS: Pathologist Review Reviewed
--- NOTE | 2018-09-07 18:40 | PCM.PN.SRG ---
Subjective: minimal pain - Physical Exam General: Alert, Oriented x3, Cooperative Lungs: Clear to auscultation, Normal air movement Cardiovascular: Regular rate, No murmurs Abdomen: Bowel Sounds Present, Soft, Non Tender Vital Signs Temp Pulse Resp BP Pulse Ox 98.1 F 72 16 114/81 H 95 09/07/18 14:24 09/07/18 14:24 09/07/18 14:24 09/07/18 14:24 09/07/18 14:24 Oxygen Delivery Method Room Air Weight: 74.5 kg Body Mass Index (BMI) 28.1 Intake and Output for Last 24 Hours 09/05/18 09/06/18 09/07/18 23:59 23:59 23:59 Intake Total 5052 / 5052 1986 840 / 840 Output Total 900 / 900 Balance 4152 / 4152 1986 840 / 840 Microbiology Past 72 Hours 09/05/18 03:41 Blood Culture - Preliminary Blood Culture (Wb) - Arm Right No growth in 48 hours. 09/05/18 03:35 Blood Culture - Preliminary Blood Culture (Wb) - Arm Right No growth in 48 hours. Laboratory Tests Past 24 Hrs 09/05/18 03:41 Diff Path Review Reviewed Medical Necessity - Tobacco Use Smoking Status: Never smoker Tobacco Use: Secondhand Assessment/Plan All Active Problems (Last Reviewed 09/03/18 @ 20:11 by Ger Sosa MD) Diverticulitis (Acute) Chemotherapy induced neutropenia (Acute) Chemotherapy induced nausea and vomiting (Acute) diverticulitis- Patient is currently on IV antibiotics Flagyl and Cipro - which is appropriate. I am comfortable with the patient receiving clear liquids currently and and willing to advance this to low residue diet so there is minimal stool flow past the area of diverticulitis. patient's white blood cell count is somewhat increased but will follow the patient clinically as following his white blood cell count in the midst of chemotherapy and Neulasta treatment will not clearly differentiate change in his overall state of his diverticulitis. Tolerated oral antibiotics OK for discharge today
--- NOTE | 2018-09-09 16:06 | CASEMGMT ---
LILY RANKIN Discharge follow-up phone call ABIMBOLA: 9 STATA: 3 Discharge date: 09-07-18 Adm Dx: Acute Sigmoid Diverticulitis Attempted discharge follow-up phone call. No answer. Message left for Mr Abarca to return call to MS3 Mila BAUTISTA CM, if he should have any questions or concerns and her phone number was provided. Joanna JAMES RN CM
== END 2018-09-07 14:59 | disposition home or self-care (01) | DRG 392 ==
LOC: ED 19:05 → MS3 19:29
PROVIDERS: Internal Medicine; Admitting Provider Hospitalist; Emergency Provider Emergency Medicine; Visit Provider Family Medicine
DX: K57.20 Diverticulitis of large intestine with perforation and abscess without bleeding (principal); C25.0 Malignant neoplasm of head of pancreas; E78.5 Hyperlipidemia, unspecified; F32.9 Major depressive disorder, single episode, unspecified; Z79.899 Other long term (current) drug therapy; E87.6 Hypokalemia; I10 Essential (primary) hypertension; K21.9 Gastro-esophageal reflux disease without esophagitis; Z77.22 Contact with and (suspected) exposure to environmental tobacco smoke (acute) (chronic); R06.6 Hiccough
CPT/HCPCS: 36415; 71046; 74177; 80048; 80053; 83605; 83690; 84484; 85025; 87040; 93005; 97116; 97162; 97166; 97530; 97802; 99282; J7030; J7040; J7120; Q9967; A4216; J0744; J2405; J3490

== ENCOUNTER 2018-11-03 12:48 | Emergency (ER) | payer MEDICARE, BC, SELFPAY ==
[2018-10-18 10:11] VITALS: BMI 27.7
[2018-10-28 09:20] VITALS: BMI 27.3
[2018-11-03 12:49] VITALS: BP 124/81; PULSE 110; RESP 16; TEMP 36.2; O2SAT 97; BMI 27.1
[2018-11-03 13:05] VITALS: BP 124/81; PULSE 110; RESP 16; TEMP 36.2; O2SAT 97
--- NOTE | 2018-11-03 13:26 | ED.VISSUMM ---
- ER Visit Summary Date of Service: 11/03/18 Chief Complaint: Nausea., Vomiting and diarrhea. Also possible coffee-ground emesis. History of Present Illness: The patient is a 63 M. Last chemo was last week. Today he presented with nausea vomiting diarrhea for last several days. Believes he may have had some coffee-ground emesis. Denies any melena. Currently on no blood thinners. Denies any fever. No significant abdominal pain. Physical Examination: Older male no acute distress. Vital signs are stable. Afebrile. He does not look septic or toxic. H EENT exam unremarkable mildly dry mucous membranes. Neck nontender no lymphadenopathy. Lungs clear to auscultation bilaterally. Heart regular rhythm no murmur rate 105. I will otherwise abdomen soft. Nondistended. Normal bowel sounds no peritoneal signs. Right upper right lower quadrants are unremarkable. No hernias or masses. No signs of obstruction. Extremities moving all 4. Neurologically awake and alert with no focal motor deficits. Back exam nontender Test Results: White count 1.2. Hemoglobin 12.1 which is baseline 12. No bands. Electrolytes show potassium of 3.0. Gap 11. Normal BUN and creatinine. Liver enzymes normal with an alkaline phosphatase of 127. Lipase equals 28. Multiple repeat exams patient is doing well. Currently is doing well at 1510. He has been able to hold down p.o. fluids. His abdomen is benign. Both he and his are comfortable with him being discharged home. Emergency Department Course and Treatment: Treated with IV fluids. IV Zofran. Currently does not look like an acute GI bleed at least is blood counts have not changed. Treatment Plan: He already has Zofran and other nausea medications at home. He will be started on Protonix for possible gastritis. He has no scar and signs of any black or bloody stools. He will follow-up with his oncologist. I have the nurse the oncology nurse practitioner on page. Disposition: Discharge Impression: Nausea, vomiting and diarrhea. History of pancreatic CA on chemotherapy. Chronic anemia. Mild hypokalemia. No acute signs of GI bleed This note was generated with [employer] dictation software. It may contain incorrect words, spelling, and punctuation that were not noted in review of the chart prior to signing ED Disposition - Plan for ED Patient: Chief Complaint: Nausea/Vomiting/Diarrhea Referrals: [facility] Doctor,Out of [Primary Care Provider] -
[2018-11-03 13:47] LABS: Lipase 28 U/L (73-393)
[2018-11-03] MEDS: Ondansetron 4 MG/2 ML Vial IV (14:03)
[2018-11-03] MEDS: Pantoprazole Sodium 40 MG Tablet PO (14:03)
[2018-11-03] MEDS: 0.9% Normal Saline 1,000 ML 1000 ML IV (14:03)
[2018-11-03 14:10] VITALS: BP 124/84; PULSE 82; PULSE 98; RESP 17; RESP 18; TEMP 36.2; O2SAT 96
[2018-11-03 15:00] VITALS: BP 117/80; PULSE 82; O2SAT 97
--- NOTE | 2018-11-03 15:26 | ED.DEP ---
ED Disposition - Plan for ED Patient: Disposition: Home or Assisted Living Chief Complaint: Nausea/Vomiting/Diarrhea Instructions: ED Gastroenteritis Viral Prescriptions: Pantoprazole Sodium [Protonix] 20 mg PO DAILY #30 tab Referrals: [facility] Doctor,Out of [Primary Care Provider] - 1 Week if not improving Additional Instructions: Plenty fluids and rest. Use of Zofran or other nausea medications as needed. If you are feeling worse or develop black stool return to the ER. At this time there is no signs of internal bleeding. Start the Protonix 1 pill a day.
[2018-11-03 15:32] VITALS: BP 138/74; PULSE 62; RESP 15; O2SAT 97
== END 2018-11-03 15:33 | disposition home or self-care (01) ==
PROVIDERS: Emergency Provider Emergency Medicine
DX: R11.2 Nausea with vomiting, unspecified (principal); R19.7 Diarrhea, unspecified; D64.9 Anemia, unspecified; E87.6 Hypokalemia; Z85.07 Personal history of malignant neoplasm of pancreas; Z79.899 Other long term (current) drug therapy
CPT/HCPCS: 36591; 80053; 83690; 85025; 96361; 96374; 99282; J7030; A4216; J2405

== ENCOUNTER → 2019-06-02 13:28 | Outpatient (CLI) | payer MEDICARE, OTHER, SELFPAY ==
[2019-01-03 12:55] VITALS: BMI 26.9
[2019-05-10 11:22] VITALS: BMI 29.2
[2019-05-24 12:12] VITALS: BMI 29.2
--- NOTE | 2019-06-02 13:29 | CT_ITS ---
STUDY: CT ABDOMEN AND PELVIS WITH CONTRAST REASON FOR EXAM: Male, 63 years old. Pancreatic cancer. Restaging. RADIATION DOSAGE (If Supplied By Facility): CTDIvol = ( 13.89 ) mGy, DLP = ( 2013.45 ) mGycm TECHNIQUE: Transaxial images were obtained from the dome of the diaphragm to the symphysis pubis without oral contrast. 100CC IV Isovue 300 was administered. Sagittal and coronal images were reconstructed. Individualized dose optimization techniques were used for this CT. COMPARISON: 02/28/2019 FINDINGS: See separate report for CT of the chest. Normal liver. Mild gallbladder wall thickening. Otherwise normal gallbladder. Stable radiopaque stent that appears to be along the horizontal portion of the duodenum. The proximal end appears to be in the distal common bile duct. Pancreas appears diffusely atrophic with a lobulated and dilated pancreatic duct. Poorly defined pancreatic head, or mass is not excluded but there is no significant enlargement. Possible infiltrating neoplasm. Pancreatic body versus possible to separate the celiac trunk and SMA form appears to be surrounding soft tissue density. Slight distention of the upper abdominal and gastric fat or infiltration by neoplasm. Appearance is slightly worse. Normal spleen and adrenal glands. Normal right kidney. Normal left kidney. Evaluation of the GI tract is limited by the absence of oral contrast. Small hiatal hernia. Otherwise normal stomach. Question thickening of the wall of the duodenum within which, appears to be a 9 cm stent proximal tip in distal common bile duct. No dilated loops of bowel, no evidence for obstruction. Small bowel wall thickening is not excluded. Normal caliber large bowel. Diverticulosis. Moderate diffuse fecal retention. Normal abdominal aorta. Normal inferior vena cava. Normal retroperitoneum. Diffuse thickening of the wall of the urinary bladder. Bilateral small fat-containing inguinal disc.. There are diffuse degenerative changes of the visualized lumbar spine. Partial compression fracture of T12, stable. CT/Abdomen/Pelvis W IV Cont ONLY IMPRESSION: Possible infiltrating neoplasm in the area of the pancreatic head and body, surrounding the celiac trunk and SMA. No definite actual mass is seen. Possible edema or infiltrating neoplasm in the epigastric fat planes. A biliary stent lies primarily in the proximal duodenum with only the proximal and distal common bile duct. Gallbladder wall thickening. Electronically Signed: Osmin Cannon MD at 19:34 EDT , Service support ,
--- NOTE | 2019-06-02 13:29 | CT_ITS ---
STUDY: CT CHEST WITH CONTRAST REASON FOR EXAM: Male, 63 years old. RESTAGING--PANCREATIC CA UNABLE TO REMOVE TUMOR RADIATION DOSAGE (If Supplied By Facility): CTDIvol = ( 13.89 ) mGy, DLP = ( 2013.45 ) mGycm TECHNIQUE: Transaxial imaging was performed following intravenous administration of 100CC IV Isovue 300. Individualized dose optimization techniques were used for this CT. COMPARISON: 02/28/2017 FINDINGS: No change. Acute abnormality. No evidence for metastatic disease in the chest. The lungs are normal. There is no demonstrated pleural abnormality. Normal heart and pericardium. Normal mediastinum. Normal hilar regions. Normal enhanced pulmonary arteries. Normal aorta arch and descending thoracic aorta. Stable old left rib fractures. Stable old partial compression fracture of T12. CT/Chest WITH Contrast IMPRESSION: No change and no acute chest disease. Electronically Signed: Osmin Cannon MD at 17:17 EDT , Service support ,
== END ==
PROVIDERS: Referring Provider Internal Medicine Hematology & Oncology; Visit Provider Internal Medicine Hematology & Oncology
DX: C25.9 Malignant neoplasm of pancreas, unspecified (principal); C61 Malignant neoplasm of prostate; Z79.899 Other long term (current) drug therapy
CPT/HCPCS: 71260; 74177; Q9967

== ENCOUNTER → 2019-07-05 12:43 | Outpatient (CLI) | payer MEDICARE, OTHER, SELFPAY ==
[2019-01-03 12:55] VITALS: BMI 26.9
[2019-07-05 11:24] VITALS: BMI 27.6
--- NOTE | 2019-07-05 12:45 | CT_ITS ---
STUDY: CT ABDOMEN AND PELVIS WITH CONTRAST REASON FOR EXAM: Male, 63 years old. Pancreatic cancer with stent in place RADIATION DOSAGE (If Supplied By Facility): CTDIvol = ( 16.30 ) mGy, DLP = ( 2283.26 ) mGycm TECHNIQUE: Transaxial images were obtained from the dome of the diaphragm to the symphysis pubis without oral contrast. 100 IV Isovue 370 was administered. Sagittal and coronal images were reconstructed. Individualized dose optimization techniques were used for this CT. COMPARISON: 06/02/2019. FINDINGS: The visualized lung bases are unremarkable. The visualized portions of the heart are within normal limits. Further increase in extent of the intrahepatic biliary ductal prominence compared to prior study in the liver. Normal distention of the gallbladder and there is increase in extent of the extrahepatic biliary system with CBD measuring 1.8 cm, previously 1.2 cm at the level of the stent within the CBD. Normal spleen. The biliary stent is placed with the other end within the third portion of duodenum. Mass seen in head of pancreas extending to the uncinate process measuring about 2.9 x 3.3 x 3.3 cm, previously 3.4 x 3.6 x 3.5 cm. There is encasement of the SMA on both sides by the pancreatic mass, with encasement of the posterior half of the SMV by the mass. Normal bilateral adrenal glands. Normal right kidney. Normal left kidney. Normal visualized stomach. Normal small intestine. There are multiple colonic diverticula consistent with diverticulosis. The appendix is visualized and appears normal. Mild to moderate hiatal hernia. Normal abdominal aorta. Normal inferior vena cava. Normal retroperitoneum. Normal urinary bladder. There are prostatic calcifications. There is a small umbilical hernia containing fat. There are diffuse degenerative changes of the visualized lumbar spine. Chronic compression deformity of T12 CT/Abdomen/Pelvis W IV Cont ONLY IMPRESSION: Further increase in extent of the intrahepatic biliary ductal prominence compared to prior study in the liver. Increase in extent of the extrahepatic biliary system with CBD measuring 1.8 cm, previously 1.2 cm at the level of the stent within the CBD. Mass seen in head of pancreas extending to the uncinate process measuring about 2.9 x 3.3 x 3.3 cm, previously 3.4 x 3.6 x 3.5 cm. There is encasement of the SMA on both sides by the pancreatic mass, with encasement of the posterior half of the SMV by the pancreatic mass. Mild to moderate hiatal hernia. Electronically Signed: Isaias Denney MD at 14:11 EDT Tel [phone], Service support ,
--- NOTE | 2019-07-05 12:45 | CT_ITS ---
STUDY: CT CHEST WITH CONTRAST REASON FOR EXAM: Male, 63 years old. Pancreatic cancer RADIATION DOSAGE (If Supplied By Facility): CTDIvol = ( 16.30 ) mGy, DLP = ( 2283.26 ) mGycm TECHNIQUE: Transaxial imaging was performed following intravenous administration of 100 IV Isovue 370. Individualized dose optimization techniques were used for this CT. COMPARISON: 06/02/19 FINDINGS: 7.7 mm nodule in the left thyroid gland. Unremarkable right thyroid gland. The lungs are within normal with no evidence of pulmonary nodule. There is no demonstrated pleural abnormality. Normal heart and pericardium. No pericardial effusion. Normal mediastinum. Normal hilar regions. Normal enhanced pulmonary arteries. Normal aorta arch and descending thoracic aorta. Chronic bilateral rib cage fracture. No aggressive osseous lesion. Significant pancreatic mass lesion in the head extending to the uncinate process CT/Chest WITH Contrast IMPRESSION: 7.7 mm nodule in the left thyroid gland. Unremarkable right thyroid gland. Follow-up with sonogram is recommended. No evidence of metastatic process in thoracic region. Electronically Signed: Isaias Denney MD at 14:17 EDT Tel [phone], Service support ,
== END ==
PROVIDERS: Referring Provider Internal Medicine Hematology & Oncology; Visit Provider Internal Medicine Hematology & Oncology
DX: C25.9 Malignant neoplasm of pancreas, unspecified (principal); C61 Malignant neoplasm of prostate; R11.0 Nausea
CPT/HCPCS: 36591; 71260; 74177; 80053; 85025; 86301; Q9967; A4216

== ENCOUNTER 2019-07-08 07:01 | Day surgery (SDC) | payer MEDICARE, OTHER, SELFPAY ==
[2019-01-03 12:55] VITALS: BMI 26.9
[2019-07-05 11:24] VITALS: BMI 27.6
[2019-07-07 14:42] VITALS: BMI 27.6
--- NOTE | 2019-07-07 15:21 | PCM.HP.BLA ---
Problem List (1) Obstructive jaundice Status: Acute (2) Pancreas cancer Status: Chronic Qualifiers: History and Physical Date of Admission: 07/07/19 Intake Vital Signs 07/07/19 Body Mass Index (BMI) 27.6 07/07/19 Height 5 ft 4 in 07/07/19 Weight: 165 lb 07/07/19 Body Mass Index (BMI) 28.3 07/07/19 Blood Pressure 119/91 H 07/07/19 Blood Pressure Location Rt brachial 07/07/19 Blood Pressure Position Sitting 07/07/19 Respiratory Rate 18 Intake Visit Reasons: Loose Stent per patient per dr dsouza Chief Complaint: Pancreas cancer on treatment Sensor Specialist Required: No Is patient in pain?: No Allergies No Known Allergies Allergy (Verified 07/07/19 15:06) Medications Acetaminophen [Pain Relief] 1,000 mg PO Q6H PRN 06/24/18 [History Confirmed 07/07/19] Magnesium Hydroxide 2,400 mg PO DAILY PRN 06/24/18 [History Confirmed 07/07/19] Citalopram [Celexa] 40 mg PO DAILY 10/13/18 [History Confirmed 07/07/19] DiphenhydrAMINE [Benadryl] 25 mg PO QHS PRN 03/22/19 [History Confirmed 07/07/19] Loratadine [Claritin] 10 mg PO DAILY PRN 03/22/19 [History Confirmed 07/07/19] Oxycodone HCl 10 mg PO Q6H PRN 03/22/19 [History Confirmed 07/07/19] Prochlorperazine Maleate [Compazine] 10 mg PO Q6H PRN 03/22/19 [History Confirmed 07/07/19] Sennosides [Senna Laxative] 8.6 mg PO BID 03/22/19 [History Confirmed 07/07/19] Tamsulosin HCl [Flomax] 0.4 mg PO DAILY 03/22/19 [History Confirmed 07/07/19] Ondansetron [Zofran] 8 mg PO Q8H PRN PRN 05/10/19 [History Confirmed 07/07/19] Pantoprazole Sodium [Protonix] 40 mg PO DAILY #30 tab 06/17/19 [Rx Confirmed 07/07/19] PFSH Medical History Gallstones (Acute) INSERTION CVC TUNNELED WITH PORT PUMP (Acute) Pancreatic mass (Acute) Peyronie's disease (Acute) Prostate cancer (Acute) Surgical History History of pancreatectomy (Acute) History of biliary duct stent placement (Acute) History of ear surgery (Acute) History of toe surgery (Acute) Family History Brother Arthritis Father Myocardial infarction Social History (Updated 07/07/19 @ 15:21 by Nestor Jimenez MD) Smoking Status: Never smoker HPI HPI HPI: YVES CAICEDO, is a 63 M who presents to the office today for HPI HPI HPI: YVES CAICEDO, is a 63 M who presents to the office today for ERCP. The patient had ERCP 1 year ago with stent placement due to pancreatic cancer. His stent has not been changed since then. Lately he has noted a lot of nausea and vomiting. He is not complaining of any epigastric or right upper quadrant pain at this time. ROS General General: Yes weight change and fatigue Cardio Cardiovascular: Yes high blood pressure; no murmur, pacemaker, heart disease, atrial fibrillation, heart attack, heart stent, palpitations, shortness of breat with exertion or chest pain Psych Psychiatric: Yes depression and anxiety Resp Respiratory: No shortness of breath, No sleep apnea, No cough, No COPD, No asthma, No emphysema, No wheezing Gastro Gastrointestinal: No abdominal pain, Yes nausea or vomiting, Yes diarrhea, Yes constipation, No blood in stool, Yes acid reflux, Yes hemorrhoids, No ulcers, No gallbladder problem, No black,tarry stools Cali Hematologic: No blood thinners Exam Const General: cooperative Nutritional Appearance: average body habitus Orientation: alert, oriented x3 Resp Effort & Inspection: normal respiratory effort Auscultation: clear to auscultation bilaterally Cardio Rate: regular rate Rhythm: regular rhythm Heart Sounds: no murmurs GI Inspection: non-distended Palpation: soft, nontender Assessment & Plan Problems 1. Malignant neoplasm of pancreas, unspecified location of malignancy C25.9 2. Obstructive jaundice K83.1 Plan Patient had biliary stent placed 1 year ago at [facility]. At that time he was diagnosed with pancreatic cancer which was deemed unresectable. He is undergoing treatment as well. He recently was complaining of nausea and vomiting and had a CT scan which showed dilated common bile duct as well as intrahepatic bile ducts. His LFTs were also elevated. He was referred to me for ERCP. I discussed ERCP with the patient as well as placement of a new stent. I would like to place a covered wall metal stent for palliation. I discussed that if this was unable to be performed I would place a new plastic biliary stent. I also discussed that if I was unable to place this he would need to be transferred for PTC drain. I explained ERCP the patient has and explained the risks including not limited to bleeding, infection, perforation of the bile duct or bowel, pancreatitis. Patient understands risks and is willing to proceed with surgery tomorrow. Nestor Jimenez MD Pager: [facility] [address] [place] [address], [address] [place] [phone] Office:
[2019-07-07 15:58] LABS: AST(SGOT) 69 U/L (15-37); Alanine Aminotransfer ALT/SGPT 111 U/L (16-61); Albumin, Serum 3.1 g/dL (3.2-5.0); Alkaline Phosphatase 594 U/L (45-117); Bilirubin, Direct 0.71 mg/dL (0.00-0.30); Globulin 4.2 g/dL (2.2-4.2); Protein, Total 7.3 g/dL (6.4-8.2)
[2019-07-08 07:19] VITALS: BP 144/90; PULSE 83; RESP 16; TEMP 36.4; O2SAT 98; BMI 27.1
[2019-07-08] MEDS: Lactated Ringers 1,000 ML 100 ML IV (07:45)
--- NOTE | 2019-07-08 08:10 | RAD_ITS ---
STUDY: ERCP REASON FOR EXAM: Male, 63 years old. Biliary stenosis RADIATION DOSAGE (If Supplied By Facility): CTDIvol = ( ) mGy, DLP = ( ) mGycm. Individualized dose optimization techniques were used for this CT.? FLUOROSCOPY TIME (if supplied): (2:51) minutes/seconds TECHNIQUE: 3 intraoperative fluoroscopy images acquired as permanent record, total fluoroscopy time of 171.7 seconds COMPARISON: CT scan of 07/05/2019. FINDINGS: Patient with a biliary stent in place. There is contrast within the common hepatic duct which is of prominent caliber, with a lack of contrast in the region of the stent causing focal restenosis of the stent. Please refer to the procedure report regarding details of the procedure. RAD/ERCP Biliary Only IMPRESSION: Findings concerning for restenosis of the biliary stent. Please refer to the procedure report regarding details of the procedure. Electronically Signed: Isaias Denney MD at 13:11 EDT Tel [phone], Service support ,
--- NOTE | 2019-07-08 09:00 | OP.ENDO_ITS ---
07/08/2019 Edward Re : ERCP procedure for Sathya Leon This procedure was performed on Monday, July 08, 2019. My impressions and recommendations are as follows: Impressions : - The major papilla appeared to have a mass. - One stent was removed from the biliary tree. - The biliary tree was swept and sludge was found. - One stent was placed into the common bile duct. Recommendations : - Resume previous diet. - Discharge patient to home. - Continue present medications. My findings are described in the full procedure note, which is enclosed. If I can be of further assistance, please feel free to contact me at Doctor phone number(s): , Work: . Sincerely, Nestor Jimenez MD 07/08/2019 8:59:54 AM This report has been signed electronically.
[2019-07-08 09:07] VITALS: BP 120/68; BP 144/90; PULSE 78; RESP 16; TEMP 36.5; O2SAT 100
[2019-07-08 09:15] VITALS: BP 120/82; BP 144/90; PULSE 73; RESP 18; O2SAT 97
[2019-07-08 09:29] VITALS: BP 115/77; BP 144/90; PULSE 67; RESP 18; TEMP 36.6; O2SAT 97
[2019-07-08 09:52] VITALS: BP 144/90
== END 2019-07-08 09:54 | disposition home or self-care (01) ==
LOC: EN 07:02 → AC 07:02
PROVIDERS: Visit Provider Surgery
PROC: (CPT 43260; principal; 2019-07-08 07:30)
DX: C25.0 Malignant neoplasm of head of pancreas (principal); K83.8 Other specified diseases of biliary tract; Z46.59 Encounter for fitting and adjustment of other gastrointestinal appliance and device; K83.1 Obstruction of bile duct; Z85.46 Personal history of malignant neoplasm of prostate
CPT/HCPCS: 43264; 43276; 36415; 74328; 76000; 80076; J7120; J2405

== ENCOUNTER → 2019-09-15 13:02 | Outpatient (CLI) | payer MEDICARE, OTHER, SELFPAY ==
[2019-01-03 12:55] VITALS: BMI 26.9
[2019-08-23 09:54] VITALS: BMI 27.8
--- NOTE | 2019-09-15 13:03 | CT_ITS ---
STUDY: CT CHEST WITH CONTRAST REASON FOR EXAM: Male, 64 years old. PANCREATIC/PROSTATE/BONE CA CHEMO RADIATION DOSAGE (If Supplied By Facility): CTDIvol = ( 13.16 ) mGy, DLP = ( 1709.71 ) mGycm TECHNIQUE: Transaxial imaging was performed following intravenous administration of IV Isovue 370 100CC. Individualized dose optimization techniques were used for this CT. COMPARISON: 07/05/2019 FINDINGS: There is a stable nodule in the left thyroid lobe measures 8mm. The lungs are normal. There is no demonstrated pleural abnormality. Normal heart and pericardium. Normal mediastinum. Normal hilar regions. Normal enhanced pulmonary arteries. Normal aorta arch and descending thoracic aorta. Old healed left rib fractures. Old fracture of T12. The common bile duct stent is seen in good position there is no dilatation of intrahepatic biliary tree. CT/Chest WITH Contrast IMPRESSION: There is no evidence of metastatic lesions in the chest. Electronically Signed: Tita Sweeney, at 7:33 EDT Tel , Service support ,
--- NOTE | 2019-09-15 13:03 | CT_ITS ---
STUDY: CT ABDOMEN AND PELVIS WITH CONTRAST REASON FOR EXAM: Male, 64 years old. The patient has a history of pancreatic and prostate carcinoma with metastasis. Chemotherapy. RADIATION DOSAGE (If Supplied By Facility): CTDIvol = ( 13.16 ) mGy, DLP = ( 1709.71 ) mGycm TECHNIQUE: Transaxial images were obtained from the dome of the diaphragm to the symphysis pubis without oral contrast. IV Isovue 370 100CC was administered. Sagittal and coronal images were reconstructed. Individualized dose optimization techniques were used for this CT. COMPARISON: Comparison is made with prior examination of July 05, 2019. FINDINGS: The visualized lung bases are unremarkable. Coronary artery calcification. There is decreased attenuation of the liver consistent with steatosis. Air is seen within the biliary ducts most likely secondary to prior stenting of the common bile duct. The common bile duct is less distended at this time as compared to prior examination. Normal gallbladder and extrahepatic biliary system. Normal spleen. There is evidence of enlargement of the head of the pancreas due to a mass measuring 3.2 cm x 3.1 cm. At this time, residual increased markings are seen in the peripancreatic fat. Once again, the superior mesenteric artery and vein are encased within the mass. There has been essentially no change. Normal bilateral adrenal glands. Normal right kidney. Normal left kidney. There is a small hiatal hernia. Normal small intestine. Normal colon. The appendix is visualized and appears normal. Normal abdominal aorta. Normal inferior vena cava. Normal retroperitoneum. Normal urinary bladder. There are prostatic calcifications. Small bilateral inguinal hernias containing fat. There are diffuse degenerative changes of the visualized lumbar spine. Stable compression deformity of the T12 vertebrae. CT/Abdomen/Pelvis W IV Cont ONLY IMPRESSION: Since prior study, there is less distention of the common bile duct with air in the biliary system due to the stent within the common bile duct. Stable appearance of the pancreatic mass. Electronically Signed: Howard Valencia, at 11:15 EDT , Service support ,
== END ==
PROVIDERS: Referring Provider Internal Medicine Hematology & Oncology; Visit Provider Internal Medicine Hematology & Oncology
DX: Z45.2 Encounter for adjustment and management of vascular access device (principal); C25.9 Malignant neoplasm of pancreas, unspecified; C61 Malignant neoplasm of prostate
CPT/HCPCS: 36591; 71260; 74177; 80053; 85025; 86301; Q9967; A4216

== ENCOUNTER → 2019-11-21 12:20 | Outpatient (CLI) | payer MEDICARE, OTHER, SELFPAY ==
[2019-01-03 12:55] VITALS: BMI 26.9
[2019-10-18 11:21] VITALS: BMI 26.9
--- NOTE | 2019-11-21 12:20 | CT_ITS ---
STUDY: CT ABDOMEN AND PELVIS WITH CONTRAST REASON FOR EXAM: Male, 64 years old. PANCREATIC CA FOLLOW UP -- HX-PANCREATIC,BONE,PROSTATE CA -- CHEMO RADIATION DOSAGE (If Supplied By Facility): CTDIvol = ( 13.69 ) mGy, DLP = ( 1086.59 ) mGycm TECHNIQUE: Transaxial images were obtained from the dome of the diaphragm to the symphysis pubis without oral contrast. IV 100mL Isovue-300 was administered. Sagittal and coronal images were reconstructed. Individualized dose optimization techniques were used for this CT. COMPARISON: Comparison is made with prior examination dated September 15, 2019. FINDINGS: There is a small right pleural effusion with minimal right basilar atelectasis. The visualized portions of the heart are within normal limits. There is decreased attenuation of the liver consistent with steatosis. Focal area of decreased attenuation is seen in the left lobe of the liver. Early metastatic deposit should be ruled out. A small amount of air is seen within the biliary ducts most likely secondary to the placement of the stent within the common bile duct. A stent is seen within the common bile duct. A small air-fluid level is seen within the stent. Normal spleen. Once again, the pancreatic head is enlarged. Persistent 3.2 cm x 4 cm mass in the head of the pancreas. Persistent increased markings in the peripancreatic bed. Soft tissue density is seen within the fat surrounding the superior mesenteric artery and superior mesenteric vein. Normal bilateral adrenal glands. Normal right kidney. Normal left kidney. There is a moderate hiatal hernia. Normal small intestine. There are multiple colonic diverticula consistent with diverticulosis. The appendix is visualized and appears normal. Normal abdominal aorta. Normal inferior vena cava. Normal retroperitoneum. Normal urinary bladder. There are prostatic calcifications. Stable enlargement of the prostate gland. There is a small umbilical hernia containing fat. There are diffuse degenerative changes of the visualized lumbar spine. Stable compression deformity of the T12 vertebrae. CT/Abdomen/Pelvis W IV Cont ONLY IMPRESSION: New small right pleural effusion. Diffuse fatty infiltration of the liver. Subtle area of decreased attenuation in the left lobe of liver. Early metastasis should be ruled out. Slight enlargement of the mass in the head of the pancreas. Electronically Signed: Howard Valencia, at 8:52 EST , Service support ,
[2019-11-21 12:41] LABS: CREATININE FINGERSTICK 0.9 mg/dL (0.70-1.30); EGFR FINGERSTICK > 60.0000 mL/min (>60)
[2019-11-21] MEDS: 0.9% Saline Lock 10 ML Syringe IV (12:45)
--- NOTE | 2019-11-21 12:45 | RAD_ITS ---
STUDY: X-RAY CHEST REASON FOR EXAM: Male, 64 years old. follow up scan and cxr, pancreatic and prostate ca TECHNIQUE: PA and lateral views of the chest. COMPARISON: September 03, 2018 FINDINGS: Stable left-sided PICC line. The lungs are clear and expanded. There is no demonstrated pleural abnormality. Normal size heart. Stable visualized osseous and mediastinal structures. Multiple healed left-sided rib fractures. Metallic stent seen in the right upper quadrant. RAD/Chest PA and Lateral IMPRESSION: No acute process Electronically Signed: Chase Bernal MD at 12:16 EST , Service support ,
== END ==
LOC: CT 12:20
PROVIDERS: Referring Provider Internal Medicine Hematology & Oncology; Visit Provider Internal Medicine Hematology & Oncology
DX: C25.9 Malignant neoplasm of pancreas, unspecified (principal); C61 Malignant neoplasm of prostate
CPT/HCPCS: 36591; 71046; 74177; 80053; 85025; 86301; Q9967; A4216

== ENCOUNTER → 2019-11-28 11:41 | Outpatient (CLI) | payer MEDICARE, OTHER, SELFPAY ==
[2019-01-03 12:55] VITALS: BMI 26.9
[2019-10-18 11:21] VITALS: BMI 26.9
[2019-11-28 13:08] LABS: Amphetamine Urine VISTA NEGATIVE (<1000 ng/mL); Barbiturate Urine VISTA NEGATIVE (< 200 ng/mL); Benzodiazepine Urine VISTA NEGATIVE (< 200 ng/mL); Cocaine Urine VISTA NEGATIVE (< 300 ng/mL); Ecstacy Urine VISTA NEGATIVE (< 500 ng/mL); Methadone Urine VISTA NEGATIVE (< 300 ng/mL); PCP Urine VISTA NEGATIVE (< 25 ng/mL); THC Urine VISTA NEGATIVE (< 50 ng/mL); Vista UDS pH Range 5
== END ==
PROVIDERS: Referring Provider Anesthesiology Pain Medicine; Visit Provider Anesthesiology Pain Medicine
DX: F11.20 Opioid dependence, uncomplicated (principal)
CPT/HCPCS: 80307

== ENCOUNTER → 2019-12-30 14:59 | Outpatient (CLI) | payer MEDICARE, OTHER, SELFPAY ==
[2019-01-03 12:55] VITALS: BMI 26.9
[2019-11-28 14:18] VITALS: BMI 26.5
--- NOTE | 2019-12-30 15:00 | CT_ITS ---
STUDY: CT CHEST WITH CONTRAST REASON FOR EXAM: Male, 64 years old. PAANCREATIC CANCER, FOLLOW UP LIVER LESION. R/O METS RADIATION DOSAGE (If Supplied By Facility): CTDIvol = ( 9.89 ) mGy, DLP = ( 1223.34 ) mGycm TECHNIQUE: Transaxial imaging was performed following intravenous administration of 100 cc Isovue 300. Multiplanar coronal and sagittal images were reformatted. Individualized dose optimization techniques were used for this CT. COMPARISON: Prior chest CT exam of September 15, 2019 FINDINGS: The lungs are normal. There is no demonstrated pleural abnormality. Normal heart and pericardium. Minimal coronary calcifications. Normal mediastinum. Normal hilar regions. Normal enhanced pulmonary arteries. Minimal plaque and moderate elongation of the thoracic aorta. Old healed fractures of the left third through the seventh ribs. Old fractures of the right seventh and eighth ribs. Old stable compression deformity of T12. CT/Chest WITH Contrast IMPRESSION: Negative for acute cardiopulmonary findings. Negative for consolidation, atelectasis or pleural effusion. Negative for evidence of metastatic disease of the chest. Normal cardiac size. Negative for pericardial effusion. Minimal coronary calcifications. Minimal plaque and moderate elongation of the thoracic aorta without aneurysm or dissection. Negative for pulmonary embolus. Numerous bilateral prior healed rib fractures. Old stable compression deformity of T12. Electronically Signed: Milka Mitchell MD at 17:21 EST , Service support ,
--- NOTE | 2019-12-30 15:00 | CT_ITS ---
STUDY: CT ABDOMEN AND PELVIS WITHOUT CONTRAST REASON FOR EXAM: Male, 64 years old. PANCREATIC CA, LIVER LESION RADIATION DOSAGE (If Supplied By Facility): CTDIvol = ( 9.89 ) mGy, DLP = ( 1223.34 ) mGycm TECHNIQUE: Transaxial images were obtained from the dome of the diaphragm to the symphysis pubis without oral contrast, and without intravenous contrast. Sagittal and coronal images were reconstructed. Individualized dose optimization techniques were used for this CT. COMPARISON: Prior exam of November 21, 2019 FINDINGS: The visualized lung bases are unremarkable. Right pleural effusion and atelectasis has resolved since prior exam. Stable lesion in the left liver lobe measuring approximately 1.77 cm, axial diameter. Pneumatobilia is present with a stent in the common bile duct terminating in the third part of the duodenum. The gallbladder is nondistended with mild pericholecystic fluid. There continues to be a hypodense masslike lesion of the pancreatic head that measures approximately 1.5 cm in diameter confluent with the inferior mesenteric artery and vein. Stranding in the peripancreatic fat appears diminished. Normal spleen. Normal bilateral adrenal glands. Normal right kidney. Normal left kidney. Intravenous contrast present in nonobstructing collecting systems and ureters. Small hiatal hernia, otherwise normal fluid-filled stomach. Normal small intestine. Diverticulosis of the colon without evidence of acute diverticulitis. The appendix is visualized and appears normal. Normal abdominal aorta. Normal inferior vena cava. Normal retroperitoneum. Nondistended urinary bladder. Small. Umbilical hernia containing a nonobstructed loop of small bowel. There are diffuse degenerative changes of the visualized lumbar spine. CT/Abdomen/Pelvis W IV Cont ONLY IMPRESSION: Resolution of the right pleural effusion and related atelectasis. Stable lesion in the left liver lobe measuring approximately 1.7 cm. Pneumatobilia with a stent of the common bile duct terminating in the third duodenum. Stable hypodense mass lesion of the pancreatic head that does not have well-defined borders but is approximately 1.5 cm diameter on axial imaging, somewhat longer in length and confluent with the base of the superior mesenteric artery and vein. My overall impression is that this has not changed substantially allowing for differences in technique and projection. There is generalized mild atrophy and a dilated pancreatic duct in the distal body and tail of the pancreas unchanged from the prior exam. There is a somewhat reduced amount of generalized peripancreatic edema. Normal nonobstructed kidneys and ureters with an unremarkable urinary bladder. Although this study is transmitted as an exam without intervenous contrast, contrast is appearing in the nonobstructed renal collecting systems ureter and bladder. No acute bowel findings. Negative for obstruction, perforation or inflammatory bowel changes. There is a small periumbilical hernia containing a nonobstructed loop of mid small bowel. A normal appendix is identified. Minimal ascites and pericholecystic fluid. The gallbladder is not distended. Electronically Signed: Milka Mitchell MD at 16:06 EST , Service support ,
[2019-12-30] MEDS: 0.9% Saline Lock 10 ML Syringe IV (15:30)
== END ==
PROVIDERS: Referring Provider Internal Medicine Hematology & Oncology; Visit Provider Internal Medicine Hematology & Oncology
DX: C25.9 Malignant neoplasm of pancreas, unspecified (principal); C61 Malignant neoplasm of prostate; K76.9 Liver disease, unspecified
CPT/HCPCS: 36591; 71260; 74177; Q9967; A4216